=== PATIENT | female | born 1945 | race Caucasian/White ===

== ENCOUNTER 2019-01-31 14:55 | Outpatient (CLI) | payer MEDICARE, MEDICAID ==
[~2019-01-31] VITALS: Ht 160 cm; Wt 59.0 kg
[2019-01-31 15:16] LABS: TOTAL HEMOGLOBIN 16.4 G/dl (12.0-16.0)
[2019-01-31] MEDS ORDERED: albuterol 2.5 MG/3 ML nebule NEB PRN (15:30)
== END 2019-01-31 23:59 | disposition home or self-care (01) ==
LOC: RT 14:55
PROVIDERS: ATTEND Internal Medicine Pulmonary Disease
DX: J44.9 Chronic obstructive pulmonary disease, unspecified (principal); R06.09 Other forms of dyspnea; F17.210 Nicotine dependence, cigarettes, uncomplicated; Z79.899 Other long term (current) drug therapy
CPT/HCPCS: 85018; 94060; 94727; 94729; 94760

== ENCOUNTER 2019-08-30 23:51 | Inpatient (IN) | payer MEDICARE, MEDICAID ==
[~2019-08-30] VITALS: Ht 162.6 cm; Wt 58.3 kg
[2019-08-31] VITALS (17 sets, daily range): BP systolic 91–128; BP diastolic 42–68
--- NOTE | 2019-08-31 00:35 | NUR ---
marie black [phone] pt daughter emergency contact ok to give information per daughter
[2019-08-31 00:41] LABS: BASOPHILS % (AUTO) 0.3 % (0-1); EOSINOPHILS % (AUTO) 0 % (0-6); HEMATOCRIT 39.1 % (35.0-45.0); LYMPHOCYTES # (AUTO) 1.8 X10'3 (1.1-4.8); LYMPHOCYTES % (AUTO) 11.1 % (21-51); MEAN CORPUSCULAR HEMOGLOBIN 31.2 PG (27.0-31.0); MEAN CORPUSCULAR HGB CONC 33.3 g/dL (33.0-36.5); MEAN CORPUSCULAR VOLUME 93.6 FL (78-98); MONOCYTES # (AUTO) 1.1 X10'3 (0-0.9); MONOCYTES % (AUTO) 6.6 % (2-12); NEUTROPHILS # (AUTO) 13.1 X10'3 (1.8-7.7); PLATELET COUNT 209 X10'3 (140-440); RED BLOOD COUNT 4.18 X10'6 (4.20-5.60); RED CELL DISTRIBUTION WIDTH 15.5 % (11.5-14.5)
[2019-08-31 00:50] LABS: ALANINE AMINOTRANSFERASE 130 U/L (12-78); ALBUMIN 3.1 G/DL (3.4-5.0); ALKALINE PHOSPHATASE 127 IU/L (46-116); ANION GAP 13 (8-16); ASPARTATE AMINO TRANSFERASE 133 U/L (10-37); BILIRUBIN,TOTAL 0.4 MG/DL (0.1-1.0); BLOOD UREA NITROGEN 27 MG/DL (7-18); BUN/CREATININE RATIO 11.1 (6.6-38.0); CALCIUM 9.2 MG/DL (8.5-10.1); CHLORIDE 108 MMOL/L (99-107); CREATININE 2.44 MG/DL (0.40-0.90); GLUCOSE 95 MG/DL (70-104); POTASSIUM 5.3 MMOL/L (3.5-5.1); SODIUM 141 MMOL/L (135-145); TOTAL CARBON DIOXIDE 19.9 MMOL/L (24-32); TOTAL PROTEIN 6.1 G/DL (6.4-8.2); eGFR 19 ML/MIN
[2019-08-31 00:56] LABS: MAGNESIUM 2.3 MG/DL (1.5-2.4)
[2019-08-31] MEDS ORDERED: normal saline 1000ML IV soln IVB ONE ×2 (01:00)
[2019-08-31] MEDS: tirofiban 5mg in NS 100mL 100 ML IV SCH ×2 (02:00→08:28)
[2019-08-31 02:11] LABS: CLARITY,URINE SLIGHTLY CLOUDY (Clear); COLOR,URINE YELLOW (Yellow); GLUCOSE, URINE NEGATIVE (Neg); KETONES,URINE NEGATIVE (Neg); LEUKOCYTE ESTERASE ,URINE TRACE (Neg); NITRITES, URINE NEGATIVE (Neg); OCCULT BLOOD,URINE NEGATIVE (Neg); PH,URINE 5.5 (4.8-8.0); PROTEIN,URINE 30 mg/dl (Neg)
[2019-08-31 02:12] LABS: UA COLLECTION TYPE STRAIGHT CATH
[2019-08-31 02:18] LABS: SQUAMOUS EPITHELIAL CELL,UR FEW /LPF (FEW)
[2019-08-31 02:20] LABS: BACTERIA,URINE FEW /HPF (Neg); RBC,URINE 0-2 /HPF (0-2); WBC,URINE 0-4 /HPF (0-4)
[2019-08-31] MEDS ORDERED: OMEP20CA11 PO (02:48)
[2019-08-31] MEDS ORDERED: BUPR1TAB36 SL (02:48)
[2019-08-31] MEDS ORDERED: GABA-532 PO (02:49)
[2019-08-31] MEDS ORDERED: FLUT1AER IH (02:49)
[2019-08-31] MEDS ORDERED: GABA-530 PO (02:49)
[2019-08-31] MEDS ORDERED: ATOR10TA70 PO (02:49)
[2019-08-31 03:03] LABS: TROPONIN I 6.04 NG/ML (0.0-0.05)
[2019-08-31] MEDS ORDERED: AMIT-189 PO (03:03)
[2019-08-31] MEDS ORDERED: dexamethasone sod phosphate 10mg/ml inj IV STA (03:11)
[2019-08-31] MEDS ORDERED: CefTRIAXone 2gm/D5W 50ml 50 ML IV ONE (03:15)
[2019-08-31] MEDS: normal saline 1000ml 1,000 ML IV SCH (03:32)
[2019-08-31] MEDS ORDERED: heparin 25,000 UNIT/250ml bag 250 ML IV SCH ×3 (03:34→04:34)
[2019-08-31] MEDS ORDERED: morphine 4 MG/ML inj SYRINge IV PRN (03:35)
[2019-08-31] MEDS ORDERED: morphine 2 MG/ML inj. syringe IV PRN (03:35)
[2019-08-31] MEDS ORDERED: magnesium 4gm in 100ml NS 100 ML IV PRN (03:35)
[2019-08-31] MEDS ORDERED: magnesium Cl slow-release 64mg tablet PO PRN (03:35)
[2019-08-31] MEDS ORDERED: potassium CL 10mEq/100ml bag 100 ML IV PRN ×2 (03:35)
[2019-08-31] MEDS ORDERED: magnesium 2GM in 50ml NS 50 ML IV PRN (03:35)
[2019-08-31] MEDS ORDERED: ondansetron/PF 4mg/2ml inj IV PRN (03:35)
[2019-08-31] MEDS: K, MAG and/or Phos replacement - Verify level? MC SCH ×2 (03:35→08:00)
[2019-08-31] MEDS ORDERED: acetaminophen 325mg tablet PO PRN ×2 (03:35)
[2019-08-31] MEDS ORDERED: potassium Cl 20 mEq SR tablet PO PRN (03:35)
[2019-08-31] MEDS: heparin 25,000 UNIT/250ml bag 250 ML IV SCH (04:52)
--- NOTE | 2019-08-31 05:33 | NUR ---
PT STARTING TO WAKE UP BECOEM MORE ALERT . INFORMED PT THAT SHE WILL NEED A TEMP LEMUS FOR HER ADMISSSION. PT STATED " I CAN GET UP TO GO TO THE BATHROOM " WHEN ASKED , ARE YOU STEADY ON YOUR FEET? SHE REPLYS " USUALLY LAURA , WE WILL FIND OUT WHEN I GET UP " THEN DOSED BACK TO SLEEP . NOTIFIED DR RICHARD
--- NOTE | 2019-08-31 06:04 | NUR ---
CALLED LAB AND ASKED THEM TO RUN SPARE BLOOD SENT TO LAB AT 0455 FOR THE BMP AND TROP
[2019-08-31 06:20] LABS: ALBUMIN 2.9 G/DL (3.4-5.0); ANION GAP 10 (8-16); BLOOD UREA NITROGEN 28 MG/DL (7-18); BUN/CREATININE RATIO 12.9 (6.6-38.0); CALCIUM 8.5 MG/DL (8.5-10.1); CHLORIDE 110 MMOL/L (99-107); CREATININE 2.17 MG/DL (0.40-0.90); GLUCOSE 109 MG/DL (70-104); POTASSIUM 5.3 MMOL/L (3.5-5.1); SODIUM 140 MMOL/L (135-145); TOTAL CARBON DIOXIDE 19.6 MMOL/L (24-32); eGFR 22 ML/MIN
[2019-08-31 06:39] LABS: TROPONIN I 5.42 NG/ML (0.0-0.05)
--- NOTE | 2019-08-31 06:45 | NUR ---
ATTEMPTED TO NOTIFY DORIE VALDEZ OF THE 6 HR TROPONIN THAT IS 5.42. WILL REPORT THE VALUE TO THE RECEIVING RN IN ICU.
--- NOTE | 2019-08-31 07:30 | NUR ---
Report called to receiving nurse. Transferred via [] Belongings []. Special Issues communicated to receiving nurse. Addendum: 08/31/19 at 0755 by Diana Lazo RN pt report received; all questions answered. pt arrived to the floor via gurney and transferred to bed. VSS, pt oriented to room and call light.
[2019-08-31] MEDS: pantoprazole 40 MG vial IV SCH (08:28)
[2019-08-31] MEDS ORDERED: TIOT4MIS5 IH (10:38)
[2019-08-31] MEDS ORDERED: albuterol 2.5 MG/3 ML nebule NEB PRN (11:45)
--- NOTE | 2019-08-31 18:28 | NUR ---
Problems reprioritized. Patient report given, questions answered & plan of care reviewed with Arleen RIOJAS.
--- NOTE | 2019-08-31 18:42 | NUR ---
184..Patient in room ICU 2045. I have received report from Jimenez RIOJAS and had the opportunity to ask questions and assume patient care.
[2019-08-31] MEDS ORDERED: non-formulary drug (Omeprazole 1 CAP) PO SCH (20:00)
[2019-08-31] MEDS: budesonide 0.5mg/2ml UD nebule IH SCH (20:22)
[2019-08-31] MEDS: amitriptyline 50mg tablet PO SCH (21:35)
[2019-08-31] MEDS: buprenorphine/naloxone 8mg/2mg SL tablet SL SCH (21:35)
--- NOTE | 2019-08-31 23:56 | NUR ---
2000..Assessment as noted, pt oriented x3, but seems slightly confused/disoriented.
[2019-09-01] VITALS (18 sets, daily range): BP systolic 80–106; BP diastolic 40–69
[2019-09-01] MEDS: normal saline 1000ml 1,000 ML IV SCH ×2 (00:36→19:32)
[2019-09-01] MEDS: tirofiban 5mg in NS 100mL 100 ML IV SCH ×2 (00:36→17:37)
--- NOTE | 2019-09-01 00:40 | NUR ---
0000..resting quietly,eyes closed,resp easy and unlabored, no other changes noted.
--- NOTE | 2019-09-01 04:34 | NUR ---
0400..No changes noted.
--- NOTE | 2019-09-01 06:21 | NUR ---
0620..Problems reprioritized. Patient report given, questions answered & plan of care reviewed with Romeo RIOJAS.
[2019-09-01 06:24] LABS: BASOPHILS % (AUTO) 0.3 % (0-1); EOSINOPHILS # (AUTO) 0.1 X10'3 (0-0.9); EOSINOPHILS % (AUTO) 1.1 % (0-6); HEMOGLOBIN 12.4 g/dl (12.0-16.0); LYMPHOCYTES % (AUTO) 9.2 % (21-51); MEAN CORPUSCULAR HEMOGLOBIN 30.9 PG (27.0-31.0); MEAN CORPUSCULAR HGB CONC 32.8 g/dL (33.0-36.5); MEAN CORPUSCULAR VOLUME 94.4 FL (78-98); MEAN PLATELET VOLUME 8.3 FL (7.4-10.4); MONOCYTES # (AUTO) 0.8 X10'3 (0-0.9); MONOCYTES % (AUTO) 6.9 % (2-12); NEUTROPHILS # (AUTO) 9.3 X10'3 (1.8-7.7); NEUTROPHILS % (AUTO) 82.5 % (42-75); PLATELET COUNT 164 X10'3 (140-440); RED BLOOD COUNT 4.02 X10'6 (4.20-5.60); RED CELL DISTRIBUTION WIDTH 15.5 % (11.5-14.5); WHITE BLOOD COUNT 11.3 X10'3 (4.5-11.0)
--- NOTE | 2019-09-01 06:25 | NUR ---
Patient in room ICU 2045. I have received report from SHINE Richardson and had the opportunity to ask questions and assume patient care.
[2019-09-01 06:35] LABS: ALANINE AMINOTRANSFERASE 117 U/L (12-78); ALBUMIN 2.7 G/DL (3.4-5.0); ALBUMIN/GLOBULIN RATIO 0.9 (1.1-1.5); ALKALINE PHOSPHATASE 111 IU/L (46-116); ANION GAP 9 (8-16); ASPARTATE AMINO TRANSFERASE 65 U/L (10-37); BILIRUBIN,TOTAL 0.4 MG/DL (0.1-1.0); BLOOD UREA NITROGEN 29 MG/DL (7-18); BUN/CREATININE RATIO 20.1 (6.6-38.0); CHLORIDE 109 MMOL/L (99-107); CREATININE 1.44 MG/DL (0.40-0.90); GLUCOSE 95 MG/DL (70-104); MAGNESIUM 2.2 MG/DL (1.5-2.4); PHOSPHORUS 2.8 MG/DL (2.3-4.5); POTASSIUM 4.4 MMOL/L (3.5-5.1); SODIUM 141 MMOL/L (135-145); TOTAL CARBON DIOXIDE 22.9 MMOL/L (24-32); TOTAL PROTEIN 5.6 G/DL (6.4-8.2); eGFR 35 ML/MIN
--- NOTE | 2019-09-01 06:45 | NUR ---
pt woke up and was attempting to get oob alone. She was responding to need to void. Assisted her to bedside commode, transferred with min assist. Mentation was slow and exhibited word searching, but was able to answer question with appropriate single word and nod. She was assisted back to bed and fell right back to sleep. She is resting comfortably.
[2019-09-01] MEDS ORDERED: non-formulary drug (Fluticasone/Vilanterol (Breo Ellipta 100-25 Mcg INH) 1 PUFF) IH SCH (08:00)
[2019-09-01] MEDS: K, MAG and/or Phos replacement - Verify level? MC SCH (08:00)
[2019-09-01] MEDS: budesonide 0.5mg/2ml UD nebule IH SCH ×2 (08:03→21:24)
[2019-09-01] MEDS: albuterol 2.5 MG/3 ML nebule NEB SCH ×4 (08:05→21:24)
--- NOTE | 2019-09-01 08:20 | NUR ---
Dr Carcamo in to see pt. She was arousable, but not communicative.
[2019-09-01] MEDS: pantoprazole 40 MG vial IV SCH (08:27)
[2019-09-01] MEDS: buprenorphine/naloxone 8mg/2mg SL tablet SL SCH (08:27)
[2019-09-01] MEDS: atorvastatin 10mg tablet PO SCH (08:27)
[2019-09-01] MEDS ORDERED: acetylcysteine 200 MG/ml 4ml vial INH PRN (11:10)
--- NOTE | 2019-09-01 16:01 | NUR ---
Spoke wit Cuca Silveira on phone @ 1500 regarding pt was hard to arouse after taking her Saboxone she stated she would come up to see pt before transfer to Tele floor. . Spoke with daughter Irene about the medication Saboxone, she states that it "snows" her every time she takes it, and thinks it should be discontinued. Advised Cuca Silveira and she agreed to d/c Saboxone. Pt is more alert at this point and will transfer to tele floor.
--- NOTE | 2019-09-01 16:06 | NUR ---
Micro phoned to report that pt has positive for Gram Positive Cocci in clusters from L hand blood culture.
--- NOTE | 2019-09-01 16:27 | NUR ---
Eleni Silveira notified of gram positive cocci in blood culture.
--- NOTE | 2019-09-01 16:47 | NUR ---
Phoned report to SHINE Rodriguez pt ready to transport to telemetry
[2019-09-01] MEDS: heparin 25,000 UNIT/250ml bag 250 ML IV SCH ×2 (17:41→17:54)
[2019-09-01] MEDS: heparin 10,000 units/1 ML INJ IV PRN (17:53)
--- NOTE | 2019-09-01 18:18 | NUR ---
Problems reprioritized. Patient report given, questions answered & plan of care reviewed with Ashok RN.
--- NOTE | 2019-09-01 18:39 | NUR ---
Patient in room PCU 3023. I have received report from Michael RIOJAS and had the opportunity to ask questions and assume patient care.
[2019-09-01] MEDS: amitriptyline 50mg tablet PO SCH (21:46)
[2019-09-02 01:04] LABS: BASOPHILS % (AUTO) 0.5 % (0-1); EOSINOPHILS # (AUTO) 0.1 X10'3 (0-0.9); EOSINOPHILS % (AUTO) 1.3 % (0-6); HEMATOCRIT 32.9 % (35.0-45.0); HEMOGLOBIN 11.3 g/dl (12.0-16.0); LYMPHOCYTES # (AUTO) 0.7 X10'3 (1.1-4.8); LYMPHOCYTES % (AUTO) 7.3 % (21-51); MEAN CORPUSCULAR HGB CONC 34.2 g/dL (33.0-36.5); MEAN CORPUSCULAR VOLUME 93.6 FL (78-98); MEAN PLATELET VOLUME 7.9 FL (7.4-10.4); MONOCYTES # (AUTO) 0.7 X10'3 (0-0.9); MONOCYTES % (AUTO) 7.6 % (2-12); NEUTROPHILS # (AUTO) 7.9 X10'3 (1.8-7.7); NEUTROPHILS % (AUTO) 83.3 % (42-75); PLATELET COUNT 145 X10'3 (140-440); RED BLOOD COUNT 3.52 X10'6 (4.20-5.60); RED CELL DISTRIBUTION WIDTH 15.3 % (11.5-14.5); WHITE BLOOD COUNT 9.4 X10'3 (4.5-11.0)
[2019-09-02 01:15] LABS: ALANINE AMINOTRANSFERASE 100 U/L (12-78); ALBUMIN 2.5 G/DL (3.4-5.0); ALBUMIN/GLOBULIN RATIO 0.9 (1.1-1.5); ALKALINE PHOSPHATASE 102 IU/L (46-116); ANION GAP 7 (8-16); ASPARTATE AMINO TRANSFERASE 35 U/L (10-37); BILIRUBIN,TOTAL 0.3 MG/DL (0.1-1.0); BLOOD UREA NITROGEN 22 MG/DL (7-18); BUN/CREATININE RATIO 16.5 (6.6-38.0); CALCIUM 8.5 MG/DL (8.5-10.1); CHLORIDE 109 MMOL/L (99-107); CREATININE 1.33 MG/DL (0.40-0.90); GLUCOSE 116 MG/DL (70-104); PHOSPHORUS 2.2 MG/DL (2.3-4.5); POTASSIUM 4.2 MMOL/L (3.5-5.1); SODIUM 139 MMOL/L (135-145); TOTAL CARBON DIOXIDE 22.9 MMOL/L (24-32); TOTAL PROTEIN 5.3 G/DL (6.4-8.2); eGFR 39 ML/MIN
[2019-09-02 03:00] VITALS: BP 101/48
--- NOTE | 2019-09-02 06:21 | NUR ---
Problems reprioritized. Patient report given, questions answered & plan of care reviewed with Audra RIOJAS.
--- NOTE | 2019-09-02 06:30 | NUR ---
Patient in room PCU 3025. I have received report from Ashok RN and had the opportunity to ask questions and assume patient care. Patient asleep in bed. All immediate needs met at this time.
[2019-09-02 07:00] VITALS: BP 89/48
[2019-09-02] MEDS: tirofiban 5mg in NS 100mL 100 ML IV SCH ×2 (07:47→21:53)
[2019-09-02] MEDS: budesonide 0.5mg/2ml UD nebule IH SCH ×2 (07:55→20:05)
[2019-09-02] MEDS: albuterol 2.5 MG/3 ML nebule NEB SCH ×4 (07:55→20:05)
[2019-09-02] MEDS: pantoprazole 40 MG vial IV SCH (07:57)
[2019-09-02] MEDS: atorvastatin 10mg tablet PO SCH (07:57)
[2019-09-02] MEDS: heparin 10,000 units/1 ML INJ IV PRN (07:59)
[2019-09-02] MEDS: K, MAG and/or Phos replacement - Verify level? MC SCH (08:00)
[2019-09-02] MEDS: heparin 25,000 UNIT/250ml bag 250 ML IV SCH (08:02)
[2019-09-02] MEDS: normal saline 1000ml 1,000 ML IV SCH ×3 (08:03→23:11)
--- NOTE | 2019-09-02 09:52 | NUR ---
New order from Dr. Carcamo. 0.2 mg IV narcan once.
[2019-09-02] MEDS ORDERED: naloxone 0.4 mg/ml inj IV ONE ×2 (09:55→12:05)
[2019-09-02 11:00] VITALS: BP 100/42
[2019-09-02 13:11] LABS: ABG BASE EXCESS -3.3 mmol/L (-2.0-3.0); ABG HCO3 21.2 mmol/L (22.0-26.0); ABG OXYGEN SATURATION 89.6 % (95-98); ABG PH (T) 7.387 (7.350-7.450); FCOHb 1.6 % (0.5-1.5); FLOW 6 L/min; FMetHb 0.3 % (0.3-1.12); FO2Hb 87.9 % (94-100); TOTAL HEMOGLOBIN 12.1 G/dl (12.0-16.0)
[2019-09-02] MEDS ORDERED: proMETHazine 25mg tablet PO PRN (14:30)
[2019-09-02] MEDS ORDERED: azithromycin 250mg tablet PO ONE (14:30)
[2019-09-02 15:00] VITALS: BP 118/66
[2019-09-02] MEDS: CefTRIAXone 2gm/D5W 50ml 50 ML IV SCH (16:01)
[2019-09-02 18:00] VITALS: BP 116/58
--- NOTE | 2019-09-02 18:30 | NUR ---
Problems reprioritized. Patient report given, questions answered & plan of care reviewed with SHINE German. Patient stable at transfer of care.
[2019-09-02] MEDS: amitriptyline 50mg tablet PO SCH (21:53)
[2019-09-02 23:00] VITALS: BP 125/54
--- NOTE | 2019-09-03 00:30 | NUR ---
Nurse was reported by 4th aspect that patient oxygen saturation had dropped down to 84%. Both assigned nurse, resource nurse, and present sitter went to patient's bedside to assess oxygen saturation. It was then that patient found to be unresponsive with only minimal response to painful stimuli. Rapid response was called and respiratory therapy, lab, and ICU charge responded. High flow nasal cannula was immediately increased from 6.0 to 12.0 as well as a nursing bolus of 500 mL was given. Blood sugar also was taken and resulted at 93. MANAGER WASTEWATER Chiquis also ordered labs and stat ABGs. Patient responsiveness increased, with given interventions, and pt was more responsive to painful stimuli and was able to open eyes for a few seconds. Once ABGs resulted it was concluded by MANAGER WASTEWATER that unresponsiveness may have been related to given ordered Amitriptyline and decreased oxygen perfusion. Close monitoring will be followed up frequently by nurse and aide sitting for neighboring bed will also present in the room at all times.
[2019-09-03 00:40] LABS: ABG BASE EXCESS -5.1 mmol/L (-2.0-3.0); ABG HCO3 19.6 mmol/L (22.0-26.0); ABG OXYGEN SATURATION 88.4 % (95-98); ABG PCO2 (T) 35.1 mmHg (35.0-45.0); ABG PH (T) 7.365 (7.350-7.450); ABG PO2 (T) 53.3 mmHg (83-108); ALLEN'S TEST Positive; FCOHb 1.4 % (0.5-1.5); FLOW 6 L/min; FMetHb 0.3 % (0.3-1.12); FO2Hb 86.9 % (94-100); RESPIRATORY RATE (OBSERVED) 22 b/min; TOTAL HEMOGLOBIN 11.7 G/dl (12.0-16.0)
--- NOTE | 2019-09-03 00:45 | NUR ---
COURTNEY Sim stated that MD rounding for patient during the day shift should assess patient's ability to tolerate ordered Amitriptyline. This information will be passed on to oncoming day shift RN.
[2019-09-03 01:19] LABS: BASOPHILS % (AUTO) 0.1 % (0-1); EOSINOPHILS # (AUTO) 0.2 X10'3 (0-0.9); EOSINOPHILS % (AUTO) 1.9 % (0-6); HEMATOCRIT 34.2 % (35.0-45.0); HEMOGLOBIN 11.4 g/dl (12.0-16.0); LYMPHOCYTES # (AUTO) 0.7 X10'3 (1.1-4.8); LYMPHOCYTES % (AUTO) 7.9 % (21-51); MEAN CORPUSCULAR HEMOGLOBIN 31.5 PG (27.0-31.0); MEAN CORPUSCULAR HGB CONC 33.3 g/dL (33.0-36.5); MEAN CORPUSCULAR VOLUME 94.4 FL (78-98); MEAN PLATELET VOLUME 8.1 FL (7.4-10.4); MONOCYTES # (AUTO) 0.9 X10'3 (0-0.9); MONOCYTES % (AUTO) 10.5 % (2-12); NEUTROPHILS # (AUTO) 7.2 X10'3 (1.8-7.7); NEUTROPHILS % (AUTO) 79.6 % (42-75); PLATELET COUNT 132 X10'3 (140-440); RED BLOOD COUNT 3.62 X10'6 (4.20-5.60); RED CELL DISTRIBUTION WIDTH 15.4 % (11.5-14.5)
[2019-09-03 01:26] LABS: ALBUMIN 2.3 G/DL (3.4-5.0); ANION GAP 8 (8-16); BLOOD UREA NITROGEN 15 MG/DL (7-18); BUN/CREATININE RATIO 14.7 (6.6-38.0); CALCIUM 8.4 MG/DL (8.5-10.1); CHLORIDE 110 MMOL/L (99-107); CREATININE 1.02 MG/DL (0.40-0.90); GLUCOSE 97 MG/DL (70-104); POTASSIUM 3.8 MMOL/L (3.5-5.1); SODIUM 140 MMOL/L (135-145); TOTAL CARBON DIOXIDE 22.5 MMOL/L (24-32); eGFR 53 ML/MIN
[2019-09-03 01:29] LABS: TROPONIN I 1.13 NG/ML (0.0-0.05)
[2019-09-03 03:00] VITALS: BP 94/55
[2019-09-03] MEDS: heparin 25,000 UNIT/250ml bag 250 ML IV SCH ×2 (04:52→09:17)
[2019-09-03] MEDS: normal saline 1000ml 1,000 ML IV SCH (04:54)
--- NOTE | 2019-09-03 06:27 | NUR ---
Patient in room PCU 3025. I have received report from Monserrat and had the opportunity to ask questions and assume patient care.
--- NOTE | 2019-09-03 06:36 | NUR ---
Patient retaining urine and was bladder scanned to appox. be retaining 869 mL. Patient was assisted to commode to urinate and was only able to output 50 mL. COURTNEY Sim has ordered a one time straight cath procedure. Addendum: 09/03/19 at 0659 by Ashley House RN Approx 1000 mL was outputted via straight cath.
[2019-09-03 07:00] VITALS: BP 117/55
[2019-09-03] MEDS: albuterol 2.5 MG/3 ML nebule NEB SCH ×4 (07:17→20:30)
[2019-09-03] MEDS: budesonide 0.5mg/2ml UD nebule IH SCH ×2 (07:23→20:30)
[2019-09-03] MEDS: K, MAG and/or Phos replacement - Verify level? MC SCH (08:00)
[2019-09-03] MEDS ORDERED: azithromycin 250mg tablet PO SCH (08:00)
[2019-09-03] MEDS: pantoprazole 40mg Tablet.DR PO SCH (08:02)
[2019-09-03] MEDS: atorvastatin 10mg tablet PO SCH (08:02)
[2019-09-03] MEDS: CefTRIAXone 2gm/D5W 50ml 50 ML IV SCH (08:02)
[2019-09-03] MEDS: heparin 10,000 units/1 ML INJ IV PRN (09:14)
[2019-09-03] MEDS: tirofiban 5mg in NS 100mL 100 ML IV SCH (10:40)
[2019-09-03 11:00] VITALS: BP 108/48
[2019-09-03] MEDS ORDERED: normal saline 1000ml 1,000 ML IV SCH ×2 (11:10→11:20)
[2019-09-03] MEDS: furosemide 20 MG/2 ML vial IV SCH (11:53)
--- NOTE | 2019-09-03 14:48 | NUR ---
Page sent to Dr. Brennan PAGER ID: [phone] MESSAGE: [phone] Flaquita Mi, Dr. Barnes stated that he signed off care to you on Tuesday and is no longer following. Please call regarding blood cultures. Thank you. Shobha RIOJAS, PCU 2167
[2019-09-03 15:00] VITALS: BP 102/46
--- NOTE | 2019-09-03 15:27 | NUR ---
I SPOKE WITH DR. FUCHS REGARDING WHICH HOSPITALIST WAS PICKING UP THIS PATIENT FROM [facility], HE INFORMED ME THAT DR. PRESCOTT WOULD BE ROUNDING ON THE PATIENT TODAY.
[2019-09-03 18:00] VITALS: BP 120/49
--- NOTE | 2019-09-03 18:34 | NUR ---
Problems reprioritized. Patient report given, questions answered & plan of care reviewed with Lida. Dr. Brennan assuming patient care and reviewing the patients information, reported to Lida to f/u on blood cultures to ensure she is on the appropriate antibiotics for what is growing if Dr. Brennan does not address this, as she is currently making changes to her medications at this time.
[2019-09-03 18:55] LABS: ABG BASE EXCESS -4.3 mmol/L (-2.0-3.0); ABG HCO3 20.5 mmol/L (22.0-26.0); ABG OXYGEN SATURATION 96.4 % (95-98); ABG PCO2 (T) 36.5 mmHg (35.0-45.0); ABG PH (T) 7.365 (7.350-7.450); ABG PO2 (T) 83.7 mmHg (83-108); ALLEN'S TEST Positive; FCOHb 1.3 % (0.5-1.5); FLOW 12 L/min; FMetHb 0.3 % (0.3-1.12); FO2Hb 94.9 % (94-100); PATIENT TEMPERATURE 36.9; RESPIRATORY RATE (OBSERVED) 18 b/min
[2019-09-03] MEDS: lactobacillus rhamnosus 10,000 MMU CELLS/CAPSULE PO SCH (20:15)
[2019-09-03 22:00] VITALS: BP 119/54
[2019-09-04 02:00] VITALS: BP 109/54
--- NOTE | 2019-09-04 03:54 | NUR ---
Patient in room PCU 3025. I have received report from SHINE Yeager and had the opportunity to ask questions and assume patient care.
--- NOTE | 2019-09-04 04:19 | NUR ---
called about a new antibiotic needed to cover the gram positive cocci shown in lab cultures. Pharmacy will dose the vancomycin.
[2019-09-04] MEDS ORDERED: vancomycin/NS 1 GM ADD-VANTAGE 250 ML X 1 DOSE IV ONE (04:30)
[2019-09-04 05:02] LABS: BASOPHILS % (AUTO) 0.2 % (0-1); EOSINOPHILS # (AUTO) 0.2 X10'3 (0-0.9); EOSINOPHILS % (AUTO) 2.9 % (0-6); HEMATOCRIT 34.4 % (35.0-45.0); HEMOGLOBIN 11.5 g/dl (12.0-16.0); LYMPHOCYTES # (AUTO) 0.9 X10'3 (1.1-4.8); LYMPHOCYTES % (AUTO) 10.3 % (21-51); MEAN CORPUSCULAR HEMOGLOBIN 31.3 PG (27.0-31.0); MEAN CORPUSCULAR HGB CONC 33.6 g/dL (33.0-36.5); MEAN CORPUSCULAR VOLUME 93.2 FL (78-98); MEAN PLATELET VOLUME 8.4 FL (7.4-10.4); MONOCYTES # (AUTO) 0.9 X10'3 (0-0.9); MONOCYTES % (AUTO) 10.7 % (2-12); NEUTROPHILS # (AUTO) 6.4 X10'3 (1.8-7.7); NEUTROPHILS % (AUTO) 75.9 % (42-75); PLATELET COUNT 137 X10'3 (140-440); RED BLOOD COUNT 3.69 X10'6 (4.20-5.60); WHITE BLOOD COUNT 8.4 X10'3 (4.5-11.0)
[2019-09-04 05:24] LABS: ALANINE AMINOTRANSFERASE 50 U/L (12-78); ALBUMIN 2.3 G/DL (3.4-5.0); ALBUMIN/GLOBULIN RATIO 0.7 (1.1-1.5); ALKALINE PHOSPHATASE 95 IU/L (46-116); ANION GAP 9 (8-16); ASPARTATE AMINO TRANSFERASE 13 U/L (10-37); BILIRUBIN,TOTAL 0.5 MG/DL (0.1-1.0); BLOOD UREA NITROGEN 13 MG/DL (7-18); BUN/CREATININE RATIO 11.9 (6.6-38.0); CALCIUM 8.8 MG/DL (8.5-10.1); CHLORIDE 108 MMOL/L (99-107); CREATININE 1.09 MG/DL (0.40-0.90); GLUCOSE 88 MG/DL (70-104); MAGNESIUM 1.8 MG/DL (1.5-2.4); PHOSPHORUS 1.9 MG/DL (2.3-4.5); POTASSIUM 3.4 MMOL/L (3.5-5.1); SODIUM 141 MMOL/L (135-145); TOTAL PROTEIN 5.5 G/DL (6.4-8.2); eGFR 49 ML/MIN
[2019-09-04 06:00] VITALS: BP 100/42
[2019-09-04] MEDS: heparin 25,000 UNIT/250ml bag 250 ML IV SCH (06:36)
--- NOTE | 2019-09-04 06:48 | NUR ---
Patient in room PCU 3025. I have received report from SHINE Hilton and had the opportunity to ask questions and assume patient care.
--- NOTE | 2019-09-04 06:48 | NUR ---
Problems reprioritized. Patient report given, questions answered & plan of care reviewed with SHINE Mancia.
--- NOTE | 2019-09-04 07:51 | NUR ---
PAGER ID: [phone] MESSAGE: [id number]: Flaquita Mi. Pt is pulling at lines and removing O2. Can I please have a sitter order? Thanks Blanche Reed [phone] Addendum: 09/04/19 at 1003 by Blanche Nielsen RN [phone]: New order: Sitter at the bedside per Dr. Carvalho via telephone.
[2019-09-04] MEDS: K, MAG and/or Phos replacement - Verify level? MC SCH (08:00)
[2019-09-04] MEDS: budesonide 0.5mg/2ml UD nebule IH SCH ×2 (08:00→19:24)
[2019-09-04] MEDS: albuterol 2.5 MG/3 ML nebule NEB SCH ×4 (08:12→19:24)
[2019-09-04] MEDS: azithromycin 250mg tablet PO SCH (08:41)
[2019-09-04] MEDS: lactobacillus rhamnosus 10,000 MMU CELLS/CAPSULE PO SCH ×2 (08:41→21:05)
[2019-09-04] MEDS: atorvastatin 10mg tablet PO SCH (08:42)
[2019-09-04] MEDS: furosemide 20 MG/2 ML vial IV SCH ×2 (08:42→14:44)
[2019-09-04] MEDS: CefTRIAXone 2gm/D5W 50ml 50 ML IV SCH (09:08)
[2019-09-04] MEDS: potassium Cl 20 mEq SR tablet PO PRN ×2 (09:48→21:05)
[2019-09-04 11:00] VITALS: BP 116/53
[2019-09-04] MEDS: pantoprazole 40mg Tablet.DR PO SCH (14:43)
[2019-09-04 15:00] VITALS: BP 102/56
--- NOTE | 2019-09-04 15:35 | NUR ---
Paged the PICC nurse regarding starting new IV.
--- NOTE | 2019-09-04 16:57 | NUR ---
Orientee documentation: I have reviewed and agree with all interventions, assessments performed and documented by SHINE Aguirre. Orientee Medication Administration: For this medication-pass time frame, all medication were reviewed, dispensed, administered and documented per hospital policy by SHINE Aguirre.
--- NOTE | 2019-09-04 17:16 | NUR ---
PAGER ID: [phone] MESSAGE: [phone]: Flaquita Mi. Pt takes omeprazole 20mg PO BID. Can she please have an order to resume this medication? Thanks Blanche Reed [phone].
[2019-09-04] MEDS: vancomycin/NS 1 GM ADD-VANTAGE 250 ML IV SCH (17:41)
--- NOTE | 2019-09-04 18:37 | NUR ---
Problems reprioritized. Patient report given, questions answered & plan of care reviewed with Lida RIOJAS.
[2019-09-04 19:00] VITALS: BP 106/68
[2019-09-04] MEDS: amitriptyline 50mg tablet PO SCH (21:00)
[2019-09-04 23:00] VITALS: BP 92/60
[2019-09-05] MEDS: potassium Cl 20 mEq SR tablet PO PRN (02:00)
[2019-09-05] MEDS: heparin 25,000 UNIT/250ml bag 250 ML IV SCH ×2 (02:14→11:37)
[2019-09-05] MEDS: heparin 10,000 units/1 ML INJ IV PRN (02:19)
[2019-09-05 03:00] VITALS: BP 100/50
[2019-09-05] MEDS: vancomycin/NS 1 GM ADD-VANTAGE 250 ML IV SCH ×2 (04:27→17:00)
[2019-09-05 05:57] LABS: BASOPHILS % (AUTO) 0.2 % (0-1); EOSINOPHILS # (AUTO) 0.2 X10'3 (0-0.9); EOSINOPHILS % (AUTO) 3.7 % (0-6); HEMATOCRIT 35.4 % (35.0-45.0); HEMOGLOBIN 11.9 g/dl (12.0-16.0); LYMPHOCYTES # (AUTO) 1.3 X10'3 (1.1-4.8); LYMPHOCYTES % (AUTO) 20.2 % (21-51); MEAN CORPUSCULAR HEMOGLOBIN 31.1 PG (27.0-31.0); MEAN CORPUSCULAR HGB CONC 33.8 g/dL (33.0-36.5); MEAN CORPUSCULAR VOLUME 92.1 FL (78-98); MEAN PLATELET VOLUME 8.7 FL (7.4-10.4); MONOCYTES # (AUTO) 0.7 X10'3 (0-0.9); MONOCYTES % (AUTO) 10.8 % (2-12); NEUTROPHILS # (AUTO) 4.1 X10'3 (1.8-7.7); NEUTROPHILS % (AUTO) 65.1 % (42-75); PLATELET COUNT 143 X10'3 (140-440); RED BLOOD COUNT 3.84 X10'6 (4.20-5.60); WHITE BLOOD COUNT 6.3 X10'3 (4.5-11.0)
[2019-09-05 06:00] VITALS: BP 120/90
[2019-09-05 06:16] LABS: ALANINE AMINOTRANSFERASE 37 U/L (12-78); ALBUMIN 2.3 G/DL (3.4-5.0); ALBUMIN/GLOBULIN RATIO 0.7 (1.1-1.5); ALKALINE PHOSPHATASE 95 IU/L (46-116); ANION GAP 8 (8-16); ASPARTATE AMINO TRANSFERASE 6 U/L (10-37); BILIRUBIN,TOTAL 0.5 MG/DL (0.1-1.0); BLOOD UREA NITROGEN 12 MG/DL (7-18); BUN/CREATININE RATIO 10.7 (6.6-38.0); CALCIUM 9.2 MG/DL (8.5-10.1); CHLORIDE 107 MMOL/L (99-107); CREATININE 1.12 MG/DL (0.40-0.90); GLUCOSE 92 MG/DL (70-104); MAGNESIUM 1.8 MG/DL (1.5-2.4); PHOSPHORUS 1.9 MG/DL (2.3-4.5); SODIUM 141 MMOL/L (135-145); TOTAL CARBON DIOXIDE 26.4 MMOL/L (24-32); TOTAL PROTEIN 5.4 G/DL (6.4-8.2); eGFR 47 ML/MIN
--- NOTE | 2019-09-05 06:35 | NUR ---
Patient in room PCU 3025B. I have received report from Lida RIOJAS and had the opportunity to ask questions and assume patient care. Sitter at bedside with patient.
--- NOTE | 2019-09-05 06:35 | NUR ---
Problems reprioritized. Patient report given, questions answered & plan of care reviewed with SHINE Garcia.
[2019-09-05] MEDS: budesonide 0.5mg/2ml UD nebule IH SCH ×2 (07:15→19:54)
[2019-09-05] MEDS: albuterol 2.5 MG/3 ML nebule NEB SCH ×4 (07:16→19:53)
[2019-09-05] MEDS: furosemide 20 MG/2 ML vial IV SCH ×2 (07:53→12:00)
[2019-09-05] MEDS: lactobacillus rhamnosus 10,000 MMU CELLS/CAPSULE PO SCH ×2 (07:54→20:14)
[2019-09-05] MEDS: atorvastatin 10mg tablet PO SCH (07:54)
[2019-09-05] MEDS: pantoprazole 40mg Tablet.DR PO SCH (07:54)
[2019-09-05] MEDS: CefTRIAXone 2gm/D5W 50ml 50 ML IV SCH (07:54)
[2019-09-05] MEDS: azithromycin 250mg tablet PO SCH (07:54)
[2019-09-05] MEDS: K, MAG and/or Phos replacement - Verify level? MC SCH (08:00)
--- NOTE | 2019-09-05 08:30 | NUR ---
Sitter removed from room, bed alarm on, frequent rounding.
[2019-09-05 11:00] VITALS: BP 92/47
--- NOTE | 2019-09-05 14:20 | NUR ---
Contacted Dr. Carcamo, elderly sitter, office regarding plan of care and possible cath as discussed in consult note. Patient is more awake, alert, and appropriate. Sitter has been discontinued. She is on 4L/min NC and maintaining saturations. Spoke with chairman & chief executive officer and she will relay message to have someone from the office call back. Awaiting return call from Dr. Carcamo.
--- NOTE | 2019-09-05 14:30 | NUR ---
Spoke to Dr. Carvalho via telephone, shared with her the patient's family's concerns that they hadn't seen a doctor in a few days. Dr. Carvalho stated she is busy with a few admits in the ED and would try to come up at 1530.
[2019-09-05 15:00] VITALS: BP 98/53
[2019-09-05] MEDS ORDERED: VANCOMYCIN LEVEL IV ONE (16:30)
--- NOTE | 2019-09-05 16:38 | NUR ---
Initial: Pt admit with NSTEMI, ALOC, and acute on chronic renal failure which is improving per MD notes. Pt confused and A/O x 3 per physical assessment. Pt with active heart healthy diet documented with 0-25% PO intake not meeting nutrient needs however currently being documented as NPO. Pt awaiting cardiac catheterization once she is off high flow oxygen per MD notes. Attempted bedside visit however pt unavailable. LBM 08/31, currently not on any bowel care, d/w RN. Will continue to follow closely. Recommendations: 1) Consider diet liberalization to regular given low PO intake 2) Monitor need for ONS once diet is advanced; encourage PO intake 3) Routine bowel care; no BM in 5 days 4) Wt per rx Addendum: 09/05/19 at [address] Amended: Links added.
--- NOTE | 2019-09-05 17:24 | NUR ---
Sent page to Dr. Carvalho: PAGER ID: [phone] MESSAGE: [phone] Flaquita Mi: Vanco trough is high at 20.2. Stopped vanco. Patient is also requesting a cough suppressant. Thanks, Radha [phone]
--- NOTE | 2019-09-05 17:41 | NUR ---
Plan of care discussed with patient. Questions answered. Patient expressed frustration that "no one seems to know anything that is happening to me". Explained plan of care again with patient and plan for continue monitoring patient. Informed her that I called Dr. Carcamo's office requesting an update for possible cath procedure and had not yet received a response from the office. Patient also wants records released to her primary ethnology professor, Dr. Toño Lopez, office. Patient signed form to release records. Office and med records are closed at this time. Placed form in patient chart for when office is open.
--- NOTE | 2019-09-05 18:00 | NUR ---
Orientee documentation: I have reviewed and agree with all interventions, assessments performed and documented by Christine Wilkins Medication Administration: For this medication-pass time frame, all medication were reviewed, dispensed, administered and documented per hospital policy by Christine RIOJAS
--- NOTE | 2019-09-05 18:11 | NUR ---
Problems reprioritized. Patient report given, questions answered & plan of care reviewed with Germaine RIOJAS. Patient sitting up in bed, PR at 4L/min.
--- NOTE | 2019-09-05 18:20 | NUR ---
Patient in room PCU 3025B. I have received report from SHINE Herron and had the opportunity to ask questions and assume patient care.
[2019-09-05 19:00] VITALS: BP 86/48
--- NOTE | 2019-09-05 20:08 | NUR ---
PAGER ID: [phone] MESSAGE: [phone]. [phone]. SHINE Sanches. Patient in 3025B- admit Dx ALOC/ NSTEMI. Phos 1.9. Would you like replacement orders? Thank You
[2019-09-05] MEDS: amitriptyline 50mg tablet PO SCH (20:14)
[2019-09-05 23:00] VITALS: BP 120/58
--- NOTE | 2019-09-06 01:07 | NUR ---
Spoke with patient family member regarding status of plans for cardiac catheterization. Per nursing notes and MD progress notes, no plans for heart cath tomorrow. Staff, family, and patient awaiting return phone call from Artificial Foliage Arranger, Dr. Carcamo's office. Patient's daughter, Vicky, relayed concern over confusion of NPO/HH diet orders. There are two orders, one submitted under DIETARY for HH and none for NPO. Reassured family member that patient will be receiving meals until orders for NPO have been confirmed. Also spoke with patient's daughter, Vicky, regarding the long drive she has to make to visit her mother from out of the area in [place]. Reached out to admitting to confirm vacancy at [facility] and there are 4-5 rooms available per staff in admitting.
[2019-09-06 03:00] VITALS: BP 100/48
[2019-09-06] MEDS ORDERED: sodium phosphate inj. 30 MMOL in dextrose 5%-water 250 ML IV PRN (05:40)
[2019-09-06] MEDS ORDERED: Neutra Phos packet PO PRN (05:40)
[2019-09-06] MEDS ORDERED: sodium phosphate inj. 15 MMOL in dextrose 5%-water 150 ML IV PRN (05:40)
[2019-09-06] MEDS: VANCOMYCIN 750MG IV in NS 250 ML IV SCH ×2 (05:51→16:45)
[2019-09-06 05:57] LABS: BASOPHILS % (AUTO) 0.3 % (0-1); EOSINOPHILS # (AUTO) 0.3 X10'3 (0-0.9); EOSINOPHILS % (AUTO) 4.3 % (0-6); HEMOGLOBIN 12.2 g/dl (12.0-16.0); LYMPHOCYTES # (AUTO) 1.8 X10'3 (1.1-4.8); LYMPHOCYTES % (AUTO) 26.3 % (21-51); MEAN CORPUSCULAR HEMOGLOBIN 31.1 PG (27.0-31.0); MEAN CORPUSCULAR HGB CONC 33.9 g/dL (33.0-36.5); MEAN CORPUSCULAR VOLUME 91.7 FL (78-98); MEAN PLATELET VOLUME 8.6 FL (7.4-10.4); MONOCYTES # (AUTO) 0.7 X10'3 (0-0.9); MONOCYTES % (AUTO) 10.1 % (2-12); NEUTROPHILS # (AUTO) 4.1 X10'3 (1.8-7.7); PLATELET COUNT 159 X10'3 (140-440); RED BLOOD COUNT 3.93 X10'6 (4.20-5.60); RED CELL DISTRIBUTION WIDTH 14.6 % (11.5-14.5)
--- NOTE | 2019-09-06 06:00 | NUR ---
Patient in room PCU 3025. I have received report from Deanne and had the opportunity to ask questions and assume patient care.
[2019-09-06 06:06] LABS: ALANINE AMINOTRANSFERASE 30 U/L (12-78); ALBUMIN 2.5 G/DL (3.4-5.0); ALBUMIN/GLOBULIN RATIO 0.7 (1.1-1.5); ALKALINE PHOSPHATASE 108 IU/L (46-116); ANION GAP 9 (8-16); ASPARTATE AMINO TRANSFERASE 11 U/L (10-37); BILIRUBIN,TOTAL 0.6 MG/DL (0.1-1.0); BLOOD UREA NITROGEN 10 MG/DL (7-18); BUN/CREATININE RATIO 8.1 (6.6-38.0); CALCIUM 9.6 MG/DL (8.5-10.1); CHLORIDE 105 MMOL/L (99-107); CREATININE 1.23 MG/DL (0.40-0.90); GLUCOSE 109 MG/DL (70-104); MAGNESIUM 1.9 MG/DL (1.5-2.4); PHOSPHORUS 2.8 MG/DL (2.3-4.5); POTASSIUM 3.6 MMOL/L (3.5-5.1); SODIUM 141 MMOL/L (135-145); TOTAL CARBON DIOXIDE 27.5 MMOL/L (24-32); eGFR 43 ML/MIN
--- NOTE | 2019-09-06 06:16 | NUR ---
Problems reprioritized. Patient report given, questions answered & plan of care reviewed with SHINE Yeager. Patient resting comfortably in bed and stable at this time.
[2019-09-06] MEDS: budesonide 0.5mg/2ml UD nebule IH SCH ×2 (06:46→19:57)
[2019-09-06] MEDS: albuterol 2.5 MG/3 ML nebule NEB SCH ×4 (06:46→19:57)
[2019-09-06 07:00] VITALS: BP 93/46
[2019-09-06] MEDS: K, MAG and/or Phos replacement - Verify level? MC SCH (08:00)
[2019-09-06] MEDS: azithromycin 250mg tablet PO SCH (08:39)
[2019-09-06] MEDS: atorvastatin 10mg tablet PO SCH (08:39)
[2019-09-06] MEDS: lactobacillus rhamnosus 10,000 MMU CELLS/CAPSULE PO SCH ×2 (08:39→19:50)
[2019-09-06] MEDS: CefTRIAXone 2gm/D5W 50ml 50 ML IV SCH (08:40)
[2019-09-06] MEDS: furosemide 20 MG/2 ML vial IV SCH (08:40)
[2019-09-06] MEDS: pantoprazole 40mg Tablet.DR PO SCH (08:43)
[2019-09-06 11:00] VITALS: BP 95/41
[2019-09-06] MEDS: heparin 25,000 UNIT/250ml bag 250 ML IV SCH (12:25)
--- NOTE | 2019-09-06 13:01 | NUR ---
Page sent to Dr. Carvalho PAGER ID: [phone] MESSAGE: [phone] Flaquita Mi - Patients family is inquiring about the plan for her, she is on 4L via NC now. Also, patient has not had a BM X 6 days. Can we have orders for milk of magnesia? Shobha RIOJAS, PCU 5183
--- NOTE | 2019-09-06 14:04 | NUR ---
Dr. Carvalho at bedside, discussing POC with patient. Per MD, she is going to contact Dr. Carcamo to discuss POC. MD also okayed order for milk of magnesia, patients appetite has improved and she has yet to have a BM. New orders implemented.
[2019-09-06] MEDS ORDERED: magnesium hydroxide 30ml (MOM) UD suspension PO PRN (14:10)
[2019-09-06 15:00] VITALS: BP 93/62
[2019-09-06] MEDS ORDERED: VANCOMYCIN LEVEL IV ONE (16:30)
--- NOTE | 2019-09-06 18:19 | NUR ---
Patient in room PCU 3025b. I have received report from SHINE Yeager and had the opportunity to ask questions and assume patient care. Patient sitting at bedside with 4 L NC. Heparin gtt infusing at 1000 units/hr per provider order. Stable at this time. Will continue to monitor closely.
--- NOTE | 2019-09-06 18:23 | NUR ---
Problems reprioritized. Patient report given, questions answered & plan of care reviewed with Deanne.
[2019-09-06 19:00] VITALS: BP 95/55
[2019-09-06] MEDS: docusate sod 100mg capsule PO SCH (19:50)
[2019-09-06] MEDS: amitriptyline 50mg tablet PO SCH (20:25)
[2019-09-06] MEDS: heparin 10,000 units/1 ML INJ IV PRN (20:33)
--- NOTE | 2019-09-06 22:23 | NUR ---
1935 Cardiac PTT resulted at 37. Per protocol will administer 2,500 unit bolus Heparin and increase rate from 1000 units/hr to 1200 units/hr. Next cardiac PTT to be drawn at 0235.
[2019-09-06 23:00] VITALS: BP 102/40
[2019-09-07] VITALS (13 sets, daily range): BP systolic 83–118; BP diastolic 42–52
[2019-09-07 02:55] LABS: BASOPHILS % (AUTO) 0.4 % (0-1); EOSINOPHILS # (AUTO) 0.3 X10'3 (0-0.9); EOSINOPHILS % (AUTO) 3.8 % (0-6); HEMATOCRIT 32.9 % (35.0-45.0); HEMOGLOBIN 11.1 g/dl (12.0-16.0); LYMPHOCYTES # (AUTO) 1.7 X10'3 (1.1-4.8); LYMPHOCYTES % (AUTO) 24.5 % (21-51); MEAN CORPUSCULAR HEMOGLOBIN 31.3 PG (27.0-31.0); MEAN CORPUSCULAR HGB CONC 33.8 g/dL (33.0-36.5); MEAN CORPUSCULAR VOLUME 92.4 FL (78-98); MEAN PLATELET VOLUME 8.3 FL (7.4-10.4); MONOCYTES # (AUTO) 0.7 X10'3 (0-0.9); NEUTROPHILS # (AUTO) 4.3 X10'3 (1.8-7.7); NEUTROPHILS % (AUTO) 61.3 % (42-75); PLATELET COUNT 151 X10'3 (140-440); RED BLOOD COUNT 3.56 X10'6 (4.20-5.60); RED CELL DISTRIBUTION WIDTH 14.6 % (11.5-14.5); WHITE BLOOD COUNT 7.1 X10'3 (4.5-11.0)
[2019-09-07 03:04] LABS: ALANINE AMINOTRANSFERASE 27 U/L (12-78); ALBUMIN 2.3 G/DL (3.4-5.0); ALBUMIN/GLOBULIN RATIO 0.8 (1.1-1.5); ALKALINE PHOSPHATASE 96 IU/L (46-116); ANION GAP 4 (8-16); ASPARTATE AMINO TRANSFERASE 12 U/L (10-37); BILIRUBIN,TOTAL 0.4 MG/DL (0.1-1.0); BLOOD UREA NITROGEN 13 MG/DL (7-18); BUN/CREATININE RATIO 11.4 (6.6-38.0); CALCIUM 9.6 MG/DL (8.5-10.1); CHLORIDE 107 MMOL/L (99-107); CREATININE 1.14 MG/DL (0.40-0.90); GLUCOSE 100 MG/DL (70-104); MAGNESIUM 2.1 MG/DL (1.5-2.4); PHOSPHORUS 2.7 MG/DL (2.3-4.5); POTASSIUM 3.6 MMOL/L (3.5-5.1); SODIUM 143 MMOL/L (135-145); TOTAL CARBON DIOXIDE 31.6 MMOL/L (24-32); TOTAL PROTEIN 5.3 G/DL (6.4-8.2); eGFR 46 ML/MIN
--- NOTE | 2019-09-07 04:57 | NUR ---
Cardiac PTT 0235 resulted in false high of 112. Redrew at 0345 and PTT resulted at 64. Per protocol, rate changed from 1200 units/hr to 1100 units/hr. Next PTT to be drawn at 0945.
[2019-09-07] MEDS: VANCOMYCIN 750MG IV in NS 250 ML IV SCH ×2 (05:34→17:00)
--- NOTE | 2019-09-07 05:58 | NUR ---
Problems reprioritized. Patient report given, questions answered & plan of care reviewed with SHINE King.
[2019-09-07] MEDS: normal saline 1000ml 1,000 ML IV SCH ×3 (06:00→16:00)
--- NOTE | 2019-09-07 06:15 | NUR ---
Patient in room PCU 3025. I have received report from SHINE Sanches and had the opportunity to ask questions and assume patient care. Patient is currently sleeping in bed, vancomycin running, heparin running at 1100/hr, NPO for label rewinder. No acute distress, will continue to monitor.
[2019-09-07] MEDS: budesonide 0.5mg/2ml UD nebule IH SCH ×2 (07:06→20:16)
[2019-09-07] MEDS: albuterol 2.5 MG/3 ML nebule NEB SCH ×4 (07:06→20:16)
[2019-09-07] MEDS: azithromycin 250mg tablet PO SCH (07:24)
[2019-09-07] MEDS: docusate sod 100mg capsule PO SCH ×2 (07:24→19:18)
[2019-09-07] MEDS: lactobacillus rhamnosus 10,000 MMU CELLS/CAPSULE PO SCH ×2 (07:24→19:18)
[2019-09-07] MEDS: atorvastatin 10mg tablet PO SCH (07:24)
[2019-09-07] MEDS: pantoprazole 40mg Tablet.DR PO SCH (07:24)
[2019-09-07] MEDS: CefTRIAXone 2gm/D5W 50ml 50 ML IV SCH (07:26)
[2019-09-07] MEDS ORDERED: midazolam 2 mg/2 ml injection ONE (07:37)
[2019-09-07] MEDS ORDERED: iohexol 350 MG/ML 50ML vial IV ONE (07:38)
[2019-09-07] MEDS ORDERED: iohexol 350MG/ML 100ml bottle IV ONE (07:38)
[2019-09-07] MEDS ORDERED: LIDOcaine 1% (10mg/ml)w/preservative injection 20ml MDV ONE (07:38)
[2019-09-07] MEDS ORDERED: fentaNYL/PF 50MCG/1 ML 2ML syringe ONE (07:38)
[2019-09-07] MEDS: K, MAG and/or Phos replacement - Verify level? MC SCH (08:00)
[2019-09-07] MEDS: furosemide 20 MG/2 ML vial IV SCH (08:00)
--- NOTE | 2019-09-07 09:54 | NUR ---
Reassessment: Pt with significant improvement of PO intake up to 75-100% all day yesterday meeting nutrient needs. LBM 08/31. Routine Colace added to med list yesterday and pt received first dose of PRN MoM yesterday. Pt still awaiting cardiac cath placement. Will continue to follow. Recommendations: 1) Consider diet liberalization to regular if low PO intake resumes 2) Monitor need for ONS; encourage PO intake 3) Routine bowel care 4) Wt per rx Addendum: 09/07/19 at [address] Amended: Links added.
--- NOTE | 2019-09-07 14:45 | NUR ---
Problems reprioritized. Patient report given, questions answered & plan of care reviewed with SHINE Arevalo. Patient was transferred to ACCE unit, stable at time of transfer. Femstop/groin site assessed and bruising noted in R groin and pubic area but tissue is soft surrounding groin site.
[2019-09-07] MEDS ORDERED: VANCOMYCIN LEVEL IV ONE (16:30)
--- NOTE | 2019-09-07 17:33 | NUR ---
Lab called with critical lab for Vanco Trough 22.2. Notified Pharmacist who stated to not give 1700 dose, and that he would be adjusting for pt due to this. Page sent to Dr Carvalho reporting lab value and pharmacist adjusting dosing.
[2019-09-08] VITALS (7 sets, daily range): BP systolic 89–105; BP diastolic 41–49
[2019-09-08] MEDS: amitriptyline 50mg tablet PO SCH ×3 (00:49→21:00)
[2019-09-08 05:24] LABS: BASOPHILS % (AUTO) 0.4 % (0-1); EOSINOPHILS # (AUTO) 0.2 X10'3 (0-0.9); EOSINOPHILS % (AUTO) 2.8 % (0-6); HEMATOCRIT 32.4 % (35.0-45.0); HEMOGLOBIN 10.9 g/dl (12.0-16.0); LYMPHOCYTES # (AUTO) 1.3 X10'3 (1.1-4.8); LYMPHOCYTES % (AUTO) 17.3 % (21-51); MEAN CORPUSCULAR HEMOGLOBIN 31.1 PG (27.0-31.0); MEAN CORPUSCULAR HGB CONC 33.5 g/dL (33.0-36.5); MEAN CORPUSCULAR VOLUME 92.9 FL (78-98); MEAN PLATELET VOLUME 8.7 FL (7.4-10.4); MONOCYTES # (AUTO) 0.7 X10'3 (0-0.9); MONOCYTES % (AUTO) 9.3 % (2-12); NEUTROPHILS # (AUTO) 5.2 X10'3 (1.8-7.7); NEUTROPHILS % (AUTO) 70.2 % (42-75); PLATELET COUNT 138 X10'3 (140-440); RED BLOOD COUNT 3.49 X10'6 (4.20-5.60); RED CELL DISTRIBUTION WIDTH 14.6 % (11.5-14.5); WHITE BLOOD COUNT 7.4 X10'3 (4.5-11.0)
[2019-09-08] MEDS: VANCOMYCIN 750MG IV in NS 250 ML IV SCH (05:52)
[2019-09-08 05:56] LABS: ALANINE AMINOTRANSFERASE 21 U/L (12-78); ALBUMIN 2.3 G/DL (3.4-5.0); ALBUMIN/GLOBULIN RATIO 0.7 (1.1-1.5); ALKALINE PHOSPHATASE 99 IU/L (46-116); ANION GAP 6 (8-16); ASPARTATE AMINO TRANSFERASE 14 U/L (10-37); BILIRUBIN,TOTAL 0.4 MG/DL (0.1-1.0); BLOOD UREA NITROGEN 9 MG/DL (7-18); BUN/CREATININE RATIO 8.1 (6.6-38.0); CALCIUM 9.3 MG/DL (8.5-10.1); CHLORIDE 108 MMOL/L (99-107); CREATININE 1.11 MG/DL (0.40-0.90); GLUCOSE 86 MG/DL (70-104); MAGNESIUM 2.1 MG/DL (1.5-2.4); PHOSPHORUS 2.5 MG/DL (2.3-4.5); SODIUM 142 MMOL/L (135-145); TOTAL CARBON DIOXIDE 28.3 MMOL/L (24-32); TOTAL PROTEIN 5.4 G/DL (6.4-8.2); eGFR 48 ML/MIN
--- NOTE | 2019-09-08 06:29 | NUR ---
Problems reprioritized. Patient report given, Ashley RIOJAS questions answered & plan of care reviewed with . bedside report completed. assessed cath site. no bleeding noted.
--- NOTE | 2019-09-08 06:31 | NUR ---
Patient in room MED 310. I have received report from SHINE Parada and had the opportunity to ask questions and assume patient care.
[2019-09-08] MEDS: budesonide 0.5mg/2ml UD nebule IH SCH ×2 (07:17→19:35)
[2019-09-08] MEDS: albuterol 2.5 MG/3 ML nebule NEB SCH ×4 (07:17→19:35)
[2019-09-08] MEDS: K, MAG and/or Phos replacement - Verify level? MC SCH (08:00)
[2019-09-08] MEDS: furosemide 20 MG/2 ML vial IV SCH (08:00)
[2019-09-08] MEDS: azithromycin 250mg tablet PO SCH (08:02)
[2019-09-08] MEDS: lactobacillus rhamnosus 10,000 MMU CELLS/CAPSULE PO SCH ×2 (08:02→20:56)
[2019-09-08] MEDS: CefTRIAXone 2gm/D5W 50ml 50 ML IV SCH (08:02)
[2019-09-08] MEDS: docusate sod 100mg capsule PO SCH ×2 (08:02→20:56)
[2019-09-08] MEDS: atorvastatin 10mg tablet PO SCH (08:02)
[2019-09-08] MEDS: pantoprazole 40mg Tablet.DR PO SCH (08:02)
--- NOTE | 2019-09-08 10:03 | NUR ---
PAGER ID: [phone] MESSAGE: 310. pt. Flaquita Mi. pt. hasn't had bowel movement since 08/31. bowel sounds absent except in LUQ. pt. has no abd. discomfort. can we order a KUB? please advise. SHINE Ramirez [phone]
--- NOTE | 2019-09-08 10:05 | NUR ---
RADIOLOGY PAGED FOR 2 VIEW - PATIENT PLACED IN WHEELCHAIR
--- NOTE | 2019-09-08 10:06 | NUR ---
VASCULAR PAGED FOR CAROTIDS AND VEIN MAPPING
--- NOTE | 2019-09-08 10:20 | NUR ---
VASCULAR CALLED BACK WILL BE IN SHORTLY
--- NOTE | 2019-09-08 10:32 | NUR ---
PAGER ID: [phone] MESSAGE: [phone]: LITTLE - HAS X3 ABX ORDERED. BUT CXR CLEAR, WBC NORMAL, CULTURES NEGATIVE. MAY WE D/C ALL ABX? NURSE HENRIETTA 3302
[2019-09-08 12:31] LABS: ABG BASE EXCESS 0.8 mmol/L (-2.0-3.0); ABG HCO3 24.7 mmol/L (22.0-26.0); ABG OXYGEN SATURATION 91.2 % (95-98); ABG PCO2 (T) 36.8 mmHg (35.0-45.0); ABG PH (T) 7.444 (7.350-7.450); ABG PO2 (T) 57.3 mmHg (83-108); ALLEN'S TEST Positive; FCOHb 1.7 % (0.5-1.5); FLOW 3 L/min; FMetHb 0.3 % (0.3-1.12); FO2Hb 89.4 % (94-100); TOTAL HEMOGLOBIN 11.8 G/dl (12.0-16.0)
--- NOTE | 2019-09-08 16:00 | NUR ---
pt. started becoming more alert and awake around 1130. pt. was able to eat lunch well and has been snacking and getting up and walking with staff.
[2019-09-08] MEDS: vancomycin inj 500 MG in normal saline 100ml IV soln 100 ML IV SCH (17:45)
--- NOTE | 2019-09-08 18:03 | NUR ---
Patient in room MED 310. I have received report from Ashley RIOJAS and had the opportunity to ask questions and assume patient care. bedside report
--- NOTE | 2019-09-08 18:15 | NUR ---
Problems reprioritized. Patient report given, questions answered & plan of care reviewed with SHINE Parada.
--- NOTE | 2019-09-08 21:59 | NUR ---
Dr. Ng notifed. pt fatigue, complaints of "not being able to get fully rested" BP 89/48 HR 94. denies chest pain. new orders 1. discontinue Elavil 2. bolus 500 ml NS
[2019-09-08] MEDS ORDERED: normal saline 500ml IV soln 1,000 ML IV ONE (22:50)
[2019-09-09 02:00] VITALS: BP 96/48
[2019-09-09 04:33] LABS: BASOPHILS # (AUTO) 0.1 X10'3 (0-0.2); BASOPHILS % (AUTO) 0.6 % (0-1); EOSINOPHILS # (AUTO) 0.2 X10'3 (0-0.9); EOSINOPHILS % (AUTO) 1.7 % (0-6); HEMATOCRIT 35.4 % (35.0-45.0); HEMOGLOBIN 11.8 g/dl (12.0-16.0); LYMPHOCYTES # (AUTO) 2.3 X10'3 (1.1-4.8); LYMPHOCYTES % (AUTO) 26.4 % (21-51); MEAN CORPUSCULAR HEMOGLOBIN 30.9 PG (27.0-31.0); MEAN CORPUSCULAR HGB CONC 33.4 g/dL (33.0-36.5); MEAN CORPUSCULAR VOLUME 92.7 FL (78-98); MEAN PLATELET VOLUME 8.7 FL (7.4-10.4); MONOCYTES # (AUTO) 0.8 X10'3 (0-0.9); MONOCYTES % (AUTO) 8.8 % (2-12); NEUTROPHILS # (AUTO) 5.5 X10'3 (1.8-7.7); NEUTROPHILS % (AUTO) 62.5 % (42-75); PLATELET COUNT 149 X10'3 (140-440); RED BLOOD COUNT 3.81 X10'6 (4.20-5.60); RED CELL DISTRIBUTION WIDTH 14.9 % (11.5-14.5); WHITE BLOOD COUNT 8.9 X10'3 (4.5-11.0)
[2019-09-09 04:40] LABS: ALANINE AMINOTRANSFERASE 24 U/L (12-78); ALBUMIN 2.4 G/DL (3.4-5.0); ALBUMIN/GLOBULIN RATIO 0.7 (1.1-1.5); ALKALINE PHOSPHATASE 108 IU/L (46-116); ANION GAP 8 (8-16); ASPARTATE AMINO TRANSFERASE 17 U/L (10-37); BILIRUBIN,TOTAL 0.4 MG/DL (0.1-1.0); BLOOD UREA NITROGEN 8 MG/DL (7-18); BUN/CREATININE RATIO 7.1 (6.6-38.0); CALCIUM 9.6 MG/DL (8.5-10.1); CHLORIDE 107 MMOL/L (99-107); CREATININE 1.12 MG/DL (0.40-0.90); GLUCOSE 102 MG/DL (70-104); MAGNESIUM 2.2 MG/DL (1.5-2.4); PHOSPHORUS 2.6 MG/DL (2.3-4.5); SODIUM 141 MMOL/L (135-145); TOTAL CARBON DIOXIDE 26.3 MMOL/L (24-32); TOTAL PROTEIN 5.7 G/DL (6.4-8.2); eGFR 47 ML/MIN
[2019-09-09] MEDS: vancomycin inj 500 MG in normal saline 100ml IV soln 100 ML IV SCH ×2 (05:42→17:00)
[2019-09-09 06:00] VITALS: BP 93/49
--- NOTE | 2019-09-09 06:15 | NUR ---
Patient in room MED 310. I have received report from SHINE Tejeda and had the opportunity to ask questions and assume patient care.
--- NOTE | 2019-09-09 06:34 | NUR ---
Problems reprioritized. Patient report given,Divya RIOJAS questions answered & plan of care reviewed with .
[2019-09-09] MEDS: budesonide 0.5mg/2ml UD nebule IH SCH ×2 (07:52→19:34)
[2019-09-09] MEDS: albuterol 2.5 MG/3 ML nebule NEB SCH ×4 (07:52→19:34)
[2019-09-09] MEDS: furosemide 20 MG/2 ML vial IV SCH (08:00)
[2019-09-09] MEDS: pantoprazole 40mg Tablet.DR PO SCH (08:29)
[2019-09-09] MEDS: CefTRIAXone 2gm/D5W 50ml 50 ML IV SCH (08:31)
[2019-09-09] MEDS: lactobacillus rhamnosus 10,000 MMU CELLS/CAPSULE PO SCH ×2 (08:35→21:03)
[2019-09-09] MEDS: docusate sod 100mg capsule PO SCH ×2 (08:35→20:00)
[2019-09-09] MEDS: atorvastatin 10mg tablet PO SCH (08:36)
[2019-09-09] MEDS: azithromycin 250mg tablet PO SCH (08:36)
[2019-09-09] MEDS: K, MAG and/or Phos replacement - Verify level? MC SCH (08:41)
--- NOTE | 2019-09-09 09:30 | NUR ---
PAGER ID: [phone] MESSAGE: Dr. Carvalho, patient Joan Mi. rm 310, ACCE patient has not had a BM in several days. Please advise. Thank you, Tram Stokes RN
--- NOTE | 2019-09-09 09:55 | NUR ---
PAGER ID: [phone] MESSAGE: Dr. Carvalho, pt Horace Mi rm 310, ACCE has questions regarding Elavil that was d/c yesterday. Antibiotic therapy? Still need? Thank you, Tram Stokes RN [id number]
[2019-09-09] MEDS ORDERED: MESSAGE TO NURSING PO ONE ×2 (10:00)
[2019-09-09] MEDS ORDERED: bisacodyl 5mg tablet.DR PO PRN ×2 (10:00→11:50)
[2019-09-09] MEDS ORDERED: dextrose 50%-water 50ml dispensing syringe IV PRN (10:00)
[2019-09-09 10:41] LABS: PARTIAL THROMBOPLASTIN TIME 30 SECONDS (22-32)
[2019-09-09] MEDS ORDERED: ringers solution, lacted 1,000 ML IV ONE (10:48)
[2019-09-09 11:00] VITALS: BP 92/42
--- NOTE | 2019-09-09 11:00 | NUR ---
Vitals taken and patient BP decreasing with a MAP in 50s. Repeated BP and contacted Dr. Carvalho. Patient to start on NS at 50cc/hr after bolus of 250 completed. d/c Zithromax and Rocephin, continueb Vanco per orders and earlier Dr. Carvalho had wanted patient to begin oral Augmentin 500 mg po but stated to wait due to patient's surgery on 09/10/[address] Boateng and allow him to decide which way he will go with antibiotic therapy.
[2019-09-09] MEDS ORDERED: normal saline 1000ml 1,000 ML IV SCH (12:25)
[2019-09-09] MEDS ORDERED: albuterol 2.5 MG/3 ML nebule ONE (13:29)
[2019-09-09] MEDS ORDERED: albuterol 2.5 MG/3 ML nebule NEB ONE (13:35)
[2019-09-09 15:00] VITALS: BP 97/48
[2019-09-09 18:00] VITALS: BP 112/53
--- NOTE | 2019-09-09 18:00 | NUR ---
Patient in room MED 310. I have received report from Divya RIOJAS and had the opportunity to ask questions and assume patient care.
--- NOTE | 2019-09-09 18:15 | NUR ---
Problems reprioritized. Patient report given, questions answered & plan of care reviewed with SHINE Bonilla.
[2019-09-09] MEDS ORDERED: metoprolol tartrate 12.5mg (1/2 tablet) PO SCH (20:00)
[2019-09-09] MEDS: mupirocin 2% nasal ointment 1gm UD NS SCH (23:51)
[2019-09-10] VITALS (18 sets, daily range): BP systolic 92–136; BP diastolic 35–53
[2019-09-10] MEDS ORDERED: MESSAGE TO NURSING PO ONE (01:30)
[2019-09-10 03:29] LABS: CLARITY,URINE CLEAR (Clear); COLOR,URINE YELLOW (Yellow); GLUCOSE, URINE NEGATIVE (Neg); KETONES,URINE NEGATIVE (Neg); LEUKOCYTE ESTERASE ,URINE NEGATIVE (Neg); NITRITES, URINE NEGATIVE (Neg); OCCULT BLOOD,URINE NEGATIVE (Neg); PROTEIN,URINE NEGATIVE (Neg); UROBILINOGEN,URINE 0.2 E.U/dL (0.2-1.0)
[2019-09-10 03:35] LABS: UA COLLECTION TYPE NON-SPECIFIED
[2019-09-10 04:16] LABS: BASOPHILS # (AUTO) 0.1 X10'3 (0-0.2); BASOPHILS % (AUTO) 0.8 % (0-1); EOSINOPHILS # (AUTO) 0.2 X10'3 (0-0.9); EOSINOPHILS % (AUTO) 2.1 % (0-6); HEMATOCRIT 34.4 % (35.0-45.0); HEMOGLOBIN 11.5 g/dl (12.0-16.0); LYMPHOCYTES # (AUTO) 1.3 X10'3 (1.1-4.8); LYMPHOCYTES % (AUTO) 17.4 % (21-51); MEAN CORPUSCULAR HEMOGLOBIN 30.8 PG (27.0-31.0); MEAN CORPUSCULAR HGB CONC 33.3 g/dL (33.0-36.5); MEAN CORPUSCULAR VOLUME 92.6 FL (78-98); MEAN PLATELET VOLUME 8.6 FL (7.4-10.4); MONOCYTES # (AUTO) 0.6 X10'3 (0-0.9); NEUTROPHILS # (AUTO) 5.5 X10'3 (1.8-7.7); NEUTROPHILS % (AUTO) 71.7 % (42-75); PLATELET COUNT 157 X10'3 (140-440); RED BLOOD COUNT 3.71 X10'6 (4.20-5.60); RED CELL DISTRIBUTION WIDTH 14.3 % (11.5-14.5); WHITE BLOOD COUNT 7.7 X10'3 (4.5-11.0)
[2019-09-10 04:24] LABS: ALANINE AMINOTRANSFERASE 23 U/L (12-78); ALBUMIN 2.5 G/DL (3.4-5.0); ALBUMIN/GLOBULIN RATIO 0.8 (1.1-1.5); ALKALINE PHOSPHATASE 110 IU/L (46-116); ANION GAP 10 (8-16); ASPARTATE AMINO TRANSFERASE 17 U/L (10-37); BILIRUBIN,TOTAL 0.4 MG/DL (0.1-1.0); BLOOD UREA NITROGEN 8 MG/DL (7-18); BUN/CREATININE RATIO 7.8 (6.6-38.0); CALCIUM 9.2 MG/DL (8.5-10.1); CHLORIDE 106 MMOL/L (99-107); CREATININE 1.03 MG/DL (0.40-0.90); GLUCOSE 107 MG/DL (70-104); MAGNESIUM 1.9 MG/DL (1.5-2.4); PHOSPHORUS 2.5 MG/DL (2.3-4.5); POTASSIUM 3.6 MMOL/L (3.5-5.1); SODIUM 141 MMOL/L (135-145); TOTAL PROTEIN 5.8 G/DL (6.4-8.2); VANCOMYCIN,TROUGH 12.7 UG/ML (6.0-14.0); eGFR 52 ML/MIN
[2019-09-10] MEDS ORDERED: VANCOMYCIN LEVEL IV ONE (04:30)
[2019-09-10] MEDS ORDERED: ROPIVAcaine 0.5% (5mg/ml) 30ml vial ONE (05:08)
[2019-09-10] MEDS: mupirocin 2% nasal ointment 1gm UD NS SCH ×2 (05:12→20:08)
[2019-09-10] MEDS ORDERED: mupirocin 2% nasal ointment 1gm UD NS SCH ×2 (05:30→22:45)
[2019-09-10] MEDS ORDERED: insulin glargine (Lantus) pen - multi-dose SQ PRN (05:30)
[2019-09-10] MEDS ORDERED: vancomycin/NS 1 GM ADD-VANTAGE 250 ML IV ONE (05:30)
[2019-09-10] MEDS: insulin regular, human 100 UNIT in normal saline 100ml IV soln 100 ML IV SCH ×2 (05:30)
[2019-09-10] MEDS ORDERED: midazolam 2 mg/2 ml injection IV PRN (05:30)
[2019-09-10] MEDS ORDERED: MALTODEXTRIN/FRUCTOSE 0.68 KCAL/ML LIQUID 296ML BOTTLE PO ONE (05:30)
[2019-09-10] MEDS ORDERED: gabapentin 400mg capsule PO ONE (05:30)
[2019-09-10] MEDS ORDERED: cefazolin/dext.iso 2gm/50ml 50 ML IV ONE (05:30)
[2019-09-10] MEDS ORDERED: famotidine 20mg tablet PO ONE (06:00)
--- NOTE | 2019-09-10 06:00 | NUR ---
Problems reprioritized. Patient report given, questions answered & plan of care reviewed with Cristina RIOJAS.
[2019-09-10] MEDS ORDERED: LORazepam 2 mg/ml vial IV ONE (06:10)
--- NOTE | 2019-09-10 06:10 | NUR ---
Patient in room MED 310. I have received report from Irene RIOJAS and had the opportunity to ask questions and assume patient care.
[2019-09-10] MEDS ORDERED: LORazepam 2 mg/ml vial ONE (06:35)
[2019-09-10] MEDS: vancomycin inj 500 MG in normal saline 100ml IV soln 100 ML IV SCH (06:50)
[2019-09-10] MEDS ORDERED: DOPamine/D5W 400mg/250ml bag IV ONE (06:55)
[2019-09-10] MEDS ORDERED: INSULIN R 100 UNIT in NS 100ML (1 UNIT/1 ML) BAG IV ONE (06:55)
[2019-09-10] MEDS ORDERED: NORepinephrine 8 MG in NS 250 ML BAG (32 mcg/ml) IV ONE (06:55)
[2019-09-10] MEDS ORDERED: protamine sulf. 10mg/ml inj. IV ONE (06:55)
[2019-09-10] MEDS ORDERED: calcium chloride 100 MG/1 ML inj IV ONE ×2 (06:55→14:00)
[2019-09-10] MEDS ORDERED: isoflurane 100ml inhalation liquid IH ONE (06:55)
[2019-09-10] MEDS ORDERED: aminocaproic acid 250 MG/1 ML inj. ONE ×2 (06:55→14:00)
--- NOTE | 2019-09-10 06:57 | NUR ---
Patient left unit to CVOR at this time. Addendum: 09/10/19 at 0658 by Cristina Green RN Ativan 1 mg IV was clarified for a give prior to transfer this am.
[2019-09-10] MEDS: albuterol 2.5 MG/3 ML nebule NEB SCH ×2 (07:00→10:54)
[2019-09-10] MEDS ORDERED: SUFENTANIL CITRATE 50 MCG/ML 2ml ampule IV ONE (07:02)
[2019-09-10] MEDS ORDERED: LIDOcaine 2% (20mg/ml) 5ml vial ONE (07:05)
[2019-09-10] MEDS ORDERED: rocuronium 10mg/ml inj IV ONE ×2 (07:05→09:59)
[2019-09-10] MEDS ORDERED: propofol inj 20 ML IV ONE (07:05)
[2019-09-10] MEDS: budesonide 0.5mg/2ml UD nebule IH SCH ×2 (07:30→20:00)
[2019-09-10] MEDS: lactobacillus rhamnosus 10,000 MMU CELLS/CAPSULE PO SCH ×2 (08:00→20:00)
[2019-09-10 08:06] LABS: ABG BASE EXCESS -5.3 mmol/L (-2.0-3.0); ABG HCO3 21.1 mmol/L (22.0-26.0); ABG OXYGEN SATURATION 89.7 % (95-98); ABG PCO2 44.5 mmHg (35.0-45.0); ABG PH 7.293 (7.350-7.450); ABG PO2 64.9 mmHg (60.0-100.0); CL (ABG) 108 mmol/L (99-107); FCOHb 1.5 % (0.5-1.5); FMetHb 0.3 % (0.3-1.12); FO2Hb 88.1 % (94-100); GLUCOSE (ABG) 72 mg/dl (70-104); IONIZED CA (ABG) 1.17 mmol/L (1.03-1.32); K (ABG) 3.9 mmol/L (3.3-5.1); NA (ABG) 140 mmol/L (135-145); TOTAL HEMOGLOBIN 10.4 G/dl (12.0-16.0)
[2019-09-10] MEDS ORDERED: heparin 10,000 units/1 ML INJ IR ONE (08:19)
[2019-09-10] MEDS ORDERED: papaverine 30 mg/ml 2ml inj. IA ONE (08:20)
[2019-09-10 08:56] LABS: ABG BASE EXCESS -3.3 mmol/L (-2.0-3.0); ABG OXYGEN SATURATION 98.8 % (95-98); ABG PCO2 47.1 mmHg (35.0-45.0); ABG PH 7.307 (7.350-7.450); ABG PO2 145.2 mmHg (60.0-100.0); CL (ABG) 107 mmol/L (99-107); FCOHb 1.5 % (0.5-1.5); FMetHb 0.3 % (0.3-1.12); GLUCOSE (ABG) 113 mg/dl (70-104); IONIZED CA (ABG) 1.13 mmol/L (1.03-1.32); NA (ABG) 139 mmol/L (135-145); TOTAL HEMOGLOBIN 9.9 G/dl (12.0-16.0)
[2019-09-10 09:05] LABS: ABG BASE EXCESS VENOUS -0.9 mmol/L; ABG HCO3 VENOUS 24.6 mmol/L; ABG PO2 VENOUS 47.3 mmHg; CL (ABG) 102 mmol/L (99-107); FCOHb VENOUS 2.7 %; FHHb VENOUS 17.7 %; FMetHb VENOUS 0.3 %; FO2Hb VENOUS 79.3 %; GLUCOSE (ABG) 116 mg/dl (70-104); IONIZED CA (ABG) 0.97 mmol/L (1.03-1.32); K (ABG) 3.9 mmol/L (3.3-5.1); NA (ABG) 136 mmol/L (135-145)
[2019-09-10 09:20] LABS: ABG BASE EXCESS -0.3 mmol/L (-2.0-3.0); ABG HCO3 25.2 mmol/L (22.0-26.0); ABG OXYGEN SATURATION 99.9 % (95-98); ABG PCO2 45.2 mmHg (35.0-45.0); ABG PH 7.364 (7.350-7.450); ABG PO2 472.8 mmHg (60.0-100.0); CL (ABG) 106 mmol/L (99-107); FCOHb 1.8 % (0.5-1.5); FMetHb 0.3 % (0.3-1.12); FO2Hb 97.8 % (94-100); GLUCOSE (ABG) 142 mg/dl (70-104); K (ABG) 5.6 mmol/L (3.3-5.1); NA (ABG) 136 mmol/L (135-145)
[2019-09-10 09:50] LABS: ABG HCO3 25.3 mmol/L (22.0-26.0); ABG OXYGEN SATURATION 99.5 % (95-98); ABG PCO2 44.2 mmHg (35.0-45.0); ABG PH 7.375 (7.350-7.450); CL (ABG) 105 mmol/L (99-107); FCOHb 1.5 % (0.5-1.5); FMetHb 0.3 % (0.3-1.12); FO2Hb 97.7 % (94-100); GLUCOSE (ABG) 155 mg/dl (70-104); IONIZED CA (ABG) 0.98 mmol/L (1.03-1.32); K (ABG) 4.6 mmol/L (3.3-5.1); NA (ABG) 134 mmol/L (135-145); TOTAL HEMOGLOBIN 8.5 G/dl (12.0-16.0)
[2019-09-10 10:05] LABS: ACT @ 1.70 U 394 SEC (193-297); ACT @ 2.84 U 501 SEC (260-420); BASELINE ACT 155 SEC (101-148); PATIENT WEIGHT 63.0k KG
[2019-09-10 10:10] LABS: ABG BASE EXCESS 3.4 mmol/L (-2.0-3.0); ABG HCO3 27.4 mmol/L (22.0-26.0); ABG OXYGEN SATURATION 99.5 % (95-98); ABG PCO2 39.3 mmHg (35.0-45.0); ABG PH 7.462 (7.350-7.450); ABG PO2 294.6 mmHg (60.0-100.0); CL (ABG) 107 mmol/L (99-107); FCOHb 1.9 % (0.5-1.5); FMetHb 0.3 % (0.3-1.12); FO2Hb 97.3 % (94-100); GLUCOSE (ABG) 149 mg/dl (70-104); IONIZED CA (ABG) 1.13 mmol/L (1.03-1.32); K (ABG) 4.7 mmol/L (3.3-5.1); NA (ABG) 137 mmol/L (135-145); TOTAL HEMOGLOBIN 7.7 G/dl (12.0-16.0)
[2019-09-10 10:35] LABS: ABG BASE EXCESS 2.9 mmol/L (-2.0-3.0); ABG HCO3 27.3 mmol/L (22.0-26.0); ABG OXYGEN SATURATION 99.2 % (95-98); ABG PCO2 40.8 mmHg (35.0-45.0); ABG PH 7.443 (7.350-7.450); ABG PO2 234.2 mmHg (60.0-100.0); CL (ABG) 108 mmol/L (99-107); FCOHb 1.7 % (0.5-1.5); FMetHb 0.3 % (0.3-1.12); FO2Hb 97.2 % (94-100); GLUCOSE (ABG) 133 mg/dl (70-104); K (ABG) 4.2 mmol/L (3.3-5.1); NA (ABG) 138 mmol/L (135-145); TOTAL HEMOGLOBIN 7.7 G/dl (12.0-16.0)
--- NOTE | 2019-09-10 11:06 | NUR ---
Reassessment: Pt PO fluctuates w/ 50% avg past 3 days. Pt still noted to have no significant BM since admit only smears x3 since 08/31 per EMR. Pt NPO to OR today for CABG; would benefit from promotility and opioid antagonist post-op for GI needs per MD approval. Pt refused colace today receiving routinely prior to OR and dulcolax PRN 09/09. Pt will need CABG ed once stable prior to d/c. Will continue to monitor for healing and bowel care needs post-op. Recommendations: 1) Consider diet liberalization to regular if low PO intake resumes post-op 2) Monitor need for ONS post-op 3) Routine bowel care; consider promotility/opioid antagonist post-op per MD approval 4) CABG ed once stable prior to d/c 5) Wt per rx Addendum: 09/10/19 at [address] Amended: Links added.
[2019-09-10 11:20] LABS: ABG HCO3 22.7 mmol/L (22.0-26.0); ABG OXYGEN SATURATION 99.2 % (95-98); ABG PCO2 43.7 mmHg (35.0-45.0); ABG PH 7.333 (7.350-7.450); ABG PO2 192.5 mmHg (60.0-100.0); CL (ABG) 108 mmol/L (99-107); FCOHb 1.8 % (0.5-1.5); FMetHb 0.3 % (0.3-1.12); FO2Hb 97.1 % (94-100); GLUCOSE (ABG) 125 mg/dl (70-104); K (ABG) 3.7 mmol/L (3.3-5.1); NA (ABG) 140 mmol/L (135-145); TOTAL HEMOGLOBIN 8.1 G/dl (12.0-16.0)
[2019-09-10 11:40] LABS: ABG BASE EXCESS -2.7 mmol/L (-2.0-3.0); ABG HCO3 23.4 mmol/L (22.0-26.0); ABG PCO2 46.3 mmHg (35.0-45.0); ABG PH 7.322 (7.350-7.450); ABG PO2 89.6 mmHg (60.0-100.0); CL (ABG) 111 mmol/L (99-107); FCOHb 1.6 % (0.5-1.5); FMetHb 0.2 % (0.3-1.12); FO2Hb 94.3 % (94-100); GLUCOSE (ABG) 114 mg/dl (70-104); IONIZED CA (ABG) 1.16 mmol/L (1.03-1.32); K (ABG) 3.5 mmol/L (3.3-5.1); NA (ABG) 143 mmol/L (135-145); TOTAL HEMOGLOBIN 11.4 G/dl (12.0-16.0)
[2019-09-10] MEDS ORDERED: epiNEPHrine 0.1mg/ml 10ml syringe ONE (11:45)
[2019-09-10 11:51] LABS: ACTIVATED CLOTTING TIME 130 SEC (101-148)
[2019-09-10] MEDS ORDERED: albumin (Human) 5% 250ml 250 ML IV ONE (11:52)
[2019-09-10] MEDS ORDERED: niCARDipine-NS 40mg/200ml IVPB 200 ML IV PRN (11:53)
[2019-09-10] MEDS: sodium chloride 0.45% 1,000 ML IV SCH (11:53)
[2019-09-10] MEDS ORDERED: milrinone (Primacor) 20mg/D5W 100 ML IV PRN (11:53)
[2019-09-10] MEDS ORDERED: DOPamine 400mg/D5W 250ml 250 ML IV PRN (11:53)
[2019-09-10] MEDS ORDERED: nitroGLYCERIN-Tridil 50MG/D5W 250 ML IV PRN (11:53)
[2019-09-10] MEDS ORDERED: dextrose 50%-water 50ml dispensing syringe IV PRN (11:55)
[2019-09-10] MEDS ORDERED: magnesium 4gm in 100ml NS 100 ML IV PRN (11:55)
[2019-09-10] MEDS ORDERED: normal saline 250ml IV soln 250 ML IV PRN (11:55)
[2019-09-10] MEDS ORDERED: potassium Cl 20 mEq SR tablet PO PRN (11:55)
[2019-09-10] MEDS ORDERED: sodium phosphate inj. 15 MMOL in dextrose 5%-water 150 ML IV PRN (11:55)
[2019-09-10] MEDS ORDERED: magnesium hydroxide 30ml (MOM) UD suspension PO PRN (11:55)
[2019-09-10] MEDS ORDERED: morphine 4 MG/ML inj SYRINge IV PRN ×2 (11:55)
[2019-09-10] MEDS: insulin regular, human inj. 100 UNITS in normal saline 100ml IV soln 100 ML IV SCH ×2 (11:55)
[2019-09-10] MEDS ORDERED: metoclopramide 5 mg/ml inj IV PRN (11:55)
[2019-09-10] MEDS ORDERED: HYDROcodone/acetaminophen 10/325mg tab PO PRN ×2 (11:55)
[2019-09-10] MEDS: epiNEPHrine inj 5 MG, calcium chloride inj. 1,000 MG in normal saline 250ml IV soln 250 ML IV SCH (11:55)
[2019-09-10] MEDS ORDERED: sodium phosphate inj. 30 MMOL in dextrose 5%-water 250 ML IV PRN (11:55)
[2019-09-10] MEDS ORDERED: Neutra Phos packet PO PRN (11:55)
[2019-09-10] MEDS ORDERED: acetaminophen 325mg tablet PO PRN (11:55)
[2019-09-10] MEDS ORDERED: pantoprazole 40 MG vial IV ONE (11:55)
--- NOTE | 2019-09-10 12:00 | NUR ---
Received to room 2013 with preceptor Hermila Montiel RN, accompanied by Trey Felix PA and surgical crew. Placed on ventilator, to spinner cap frame, arterial line and PA line pressure monitored. Chest tubes to suction at 20 cm. Cabrera cath to gravity drainage. Dressings are dry and intact. See assessment record. All vasoactive drugs are infusing via central line.
[2019-09-10 12:20] LABS: ABG BASE EXCESS -3.1 mmol/L (-2.0-3.0); ABG HCO3 23.8 mmol/L (22.0-26.0); ABG OXYGEN SATURATION 97.5 % (95-98); ABG PCO2 (T) 51.3 mmHg (35.0-45.0); ABG PH (T) 7.285 (7.350-7.450); ABG PO2 (T) 106.4 mmHg (83-108); FCOHb 1.2 % (0.5-1.5); FLOW 35 L/min; FMetHb 0.1 % (0.3-1.12); FO2Hb 96.2 % (94-100); MINUTE VOLUME 9 L/min; PEEP 5 cm H2O; RESPIRATORY RATE 14 b/min; RESPIRATORY RATE (OBSERVED) 14 b/min; TIDAL VOLUME 550 mL; TOTAL HEMOGLOBIN 11.6 G/dl (12.0-16.0)
[2019-09-10] MEDS: albumin (Human) 5% 250ml 250 ML IV PRN ×2 (12:24→14:53)
[2019-09-10 12:28] LABS: BASOPHILS % (AUTO) 0.2 % (0-1); EOSINOPHILS % (AUTO) 0.1 % (0-6); HEMATOCRIT 32.5 % (35.0-45.0); HEMOGLOBIN 10.8 g/dl (12.0-16.0); LYMPHOCYTES # (AUTO) 1.3 X10'3 (1.1-4.8); MEAN CORPUSCULAR HEMOGLOBIN 30.6 PG (27.0-31.0); MEAN CORPUSCULAR HGB CONC 33.1 g/dL (33.0-36.5); MEAN CORPUSCULAR VOLUME 92.4 FL (78-98); MEAN PLATELET VOLUME 8.5 FL (7.4-10.4); MONOCYTES # (AUTO) 1.1 X10'3 (0-0.9); MONOCYTES % (AUTO) 4.3 % (2-12); NEUTROPHILS # (AUTO) 22.7 X10'3 (1.8-7.7); NEUTROPHILS % (AUTO) 90.4 % (42-75); PLATELET COUNT 107 X10'3 (140-440); RED BLOOD COUNT 3.52 X10'6 (4.20-5.60); RED CELL DISTRIBUTION WIDTH 14.7 % (11.5-14.5)
[2019-09-10 12:33] LABS: WHITE BLOOD COUNT 25.1 X10'3 (4.5-11.0)
[2019-09-10 12:44] LABS: PARTIAL THROMBOPLASTIN TIME 36 SECONDS (22-32)
[2019-09-10 12:48] LABS: ALBUMIN 2.2 G/DL (3.4-5.0); ANION GAP 9 (8-16); BLOOD UREA NITROGEN 9 MG/DL (7-18); BUN/CREATININE RATIO 8.8 (6.6-38.0); CALCIUM 8.2 MG/DL (8.5-10.1); CHLORIDE 112 MMOL/L (99-107); CREATININE 1.02 MG/DL (0.40-0.90); GLUCOSE 109 MG/DL (70-104); MAGNESIUM 2.2 MG/DL (1.5-2.4); PHOSPHORUS 2.6 MG/DL (2.3-4.5); POTASSIUM 3.6 MMOL/L (3.5-5.1); SODIUM 145 MMOL/L (135-145); eGFR 53 ML/MIN
[2019-09-10] MEDS: insulin Lispro (HumaLOG) vial - multi-dose SQ SCH ×2 (13:00→18:00)
[2019-09-10] MEDS: gabapentin 300mg capsule PO SCH ×2 (13:00→20:16)
[2019-09-10 13:09] LABS: PLATELET ESTIMATE DECREASED; TOTAL CELLS COUNTED 100
[2019-09-10 13:23] LABS: ALANINE AMINOTRANSFERASE 15 U/L (12-78); ALBUMIN/GLOBULIN RATIO 1.2 (1.1-1.5); ALKALINE PHOSPHATASE 77 IU/L (46-116); ASPARTATE AMINO TRANSFERASE 25 U/L (10-37); BILIRUBIN,TOTAL 0.5 MG/DL (0.1-1.0); TOTAL PROTEIN 4.1 G/DL (6.4-8.2)
[2019-09-10] MEDS: magnesium 2GM in 50ml NS 50 ML IV PRN (13:34)
[2019-09-10] MEDS: potassium Cl 20mEq/100mL bag 100 ML IV PRN ×3 (13:48→15:44)
[2019-09-10] MEDS ORDERED: potassium Cl 2 mEq/ml inj IV ONE (14:00)
[2019-09-10] MEDS ORDERED: methylPREDNISolone sod. succ. 500mg inj ONE (14:00)
[2019-09-10] MEDS ORDERED: albumin (Human) 5% 250ml BOTTLE IV ONE (14:00)
[2019-09-10] MEDS ORDERED: MAGNESIUM SULFATE 4 MEQ/ML (5gm/10ml) injection ONE (14:00)
[2019-09-10] MEDS ORDERED: sodium bicarbonate (8.4%) inj. 1 MEQ/ML ML ONE (14:00)
[2019-09-10] MEDS ORDERED: papaverine 30 mg/ml 2ml inj. ONE (14:00)
[2019-09-10] MEDS ORDERED: heparin 10,000 units/1 ML INJ ONE (14:00)
[2019-09-10] MEDS ORDERED: LIDOcaine 2% (20 mg/ml) 5ml cardiac syringe ONE (14:00)
[2019-09-10] MEDS ORDERED: phenylephrine 10mg/ml inj. ONE (14:00)
[2019-09-10] MEDS: ceFAZolin 1GM/D5W- ADD-VANTAGE 50 ML IV SCH (15:24)
--- NOTE | 2019-09-10 17:24 | NUR ---
Pt. off all gtts. Not waking up yet or following commands. Pt. has cough with thick, secretions requiring lavage through ETT to liquify secretions. VSS. CT output and UO WNL.
--- NOTE | 2019-09-10 18:14 | NUR ---
Problems reprioritized. Patient report given, questions answered & plan of care reviewed with Lianne RIOJAS.
[2019-09-10 18:18] LABS: BASOPHILS % (AUTO) 0.1 % (0-1); EOSINOPHILS % (AUTO) 0 % (0-6); HEMATOCRIT 31.9 % (35.0-45.0); HEMOGLOBIN 10.5 g/dl (12.0-16.0); LYMPHOCYTES # (AUTO) 0.4 X10'3 (1.1-4.8); LYMPHOCYTES % (AUTO) 2.4 % (21-51); MEAN CORPUSCULAR HEMOGLOBIN 30.5 PG (27.0-31.0); MEAN CORPUSCULAR HGB CONC 32.8 g/dL (33.0-36.5); MEAN CORPUSCULAR VOLUME 92.8 FL (78-98); MEAN PLATELET VOLUME 8.7 FL (7.4-10.4); MONOCYTES # (AUTO) 0.5 X10'3 (0-0.9); MONOCYTES % (AUTO) 3.1 % (2-12); NEUTROPHILS # (AUTO) 14.6 X10'3 (1.8-7.7); NEUTROPHILS % (AUTO) 94.4 % (42-75); PLATELET COUNT 75 X10'3 (140-440); RED BLOOD COUNT 3.44 X10'6 (4.20-5.60); RED CELL DISTRIBUTION WIDTH 14.7 % (11.5-14.5); WHITE BLOOD COUNT 15.4 X10'3 (4.5-11.0)
[2019-09-10 18:30] LABS: ALBUMIN 2.9 G/DL (3.4-5.0); ANION GAP 7 (8-16); BLOOD UREA NITROGEN 13 MG/DL (7-18); BUN/CREATININE RATIO 12.5 (6.6-38.0); CALCIUM 8.5 MG/DL (8.5-10.1); CHLORIDE 111 MMOL/L (99-107); CREATININE 1.04 MG/DL (0.40-0.90); GLUCOSE 155 MG/DL (70-104); MAGNESIUM 2.6 MG/DL (1.5-2.4); PHOSPHORUS 2.7 MG/DL (2.3-4.5); POTASSIUM 5.9 MMOL/L (3.5-5.1); SODIUM 140 MMOL/L (135-145); TOTAL CARBON DIOXIDE 22.4 MMOL/L (24-32); eGFR 52 ML/MIN
--- NOTE | 2019-09-10 18:36 | NUR ---
Patient in room CICU 2012. I have received report from Hermila and Karen RNs and had the opportunity to ask questions and assume patient care. Patient intubated, on spontaneous mode and saturating at 97% on 45% FIO2. Patient very drowsy and not yet waking up to verbal or tactile stimulus at this time, not on any sedation. Vitals WNL, all vasoactive infusions off at this time. Will continue to monitor patient closely.
[2019-09-10] MEDS: docusate sod 100mg capsule PO SCH (20:00)
[2019-09-10] MEDS: vancomycin/NS 1 GM ADD-VANTAGE 250 ML IV SCH (20:08)
[2019-09-10 20:10] LABS: ABG BASE EXCESS -6.1 mmol/L (-2.0-3.0); ABG HCO3 18.8 mmol/L (22.0-26.0); ABG OXYGEN SATURATION 97.1 % (95-98); ABG PCO2 (T) 37.6 mmHg (35.0-45.0); ABG PH (T) 7.324 (7.350-7.450); ABG PO2 (T) 105.9 mmHg (83-108); FCOHb 1.1 % (0.5-1.5); FMetHb 0.3 % (0.3-1.12); FO2Hb 95.7 % (94-100); MINUTE VOLUME 20 L/min; PATIENT TEMPERATURE 38.4; PEEP 5 cm H2O; RESPIRATORY RATE 0 b/min; RESPIRATORY RATE (OBSERVED) 26 b/min; TOTAL HEMOGLOBIN 11.8 G/dl (12.0-16.0)
[2019-09-10] MEDS ORDERED: acetaminophen 120MG suppository, rectal RC PRN (20:10)
[2019-09-10] MEDS ORDERED: acetaminophen 650mg rectal suppository RC PRN (21:25)
--- NOTE | 2019-09-10 21:55 | NUR ---
Patient having constant coughing fits when awake. Patient still very sleepy, but weaning parameters were performed and passed. ABG drawn and WNL. Patient extubated and tolerated well, placed on 15L on high flow NC and saturating at 97%. Will continue to monitor patient closely.
[2019-09-11] VITALS (22 sets, daily range): BP systolic 97–143; BP diastolic 9–62
[2019-09-11] MEDS: ceFAZolin 1GM/D5W- ADD-VANTAGE 50 ML IV SCH ×4 (00:32→23:49)
[2019-09-11 05:15] LABS: BASOPHILS % (AUTO) 0 % (0-1); EOSINOPHILS % (AUTO) 0 % (0-6); HEMATOCRIT 30.9 % (35.0-45.0); HEMOGLOBIN 10.3 g/dl (12.0-16.0); LYMPHOCYTES % (AUTO) 5.5 % (21-51); MEAN CORPUSCULAR HEMOGLOBIN 30.8 PG (27.0-31.0); MEAN CORPUSCULAR HGB CONC 33.5 g/dL (33.0-36.5); MEAN CORPUSCULAR VOLUME 92.2 FL (78-98); MEAN PLATELET VOLUME 8.9 FL (7.4-10.4); MONOCYTES # (AUTO) 0.6 X10'3 (0-0.9); NEUTROPHILS # (AUTO) 16.7 X10'3 (1.8-7.7); NEUTROPHILS % (AUTO) 91.5 % (42-75); PLATELET COUNT 79 X10'3 (140-440); RED BLOOD COUNT 3.36 X10'6 (4.20-5.60); RED CELL DISTRIBUTION WIDTH 14.7 % (11.5-14.5); WHITE BLOOD COUNT 18.3 X10'3 (4.5-11.0)
[2019-09-11 05:24] LABS: PARTIAL THROMBOPLASTIN TIME 35 SECONDS (22-32)
[2019-09-11 05:45] LABS: ANION GAP 12 (8-16); BLOOD UREA NITROGEN 14 MG/DL (7-18); BUN/CREATININE RATIO 11.5 (6.6-38.0); CHLORIDE 111 MMOL/L (99-107); CREATININE 1.22 MG/DL (0.40-0.90); GLUCOSE 130 MG/DL (70-104); POTASSIUM 4.8 MMOL/L (3.5-5.1); SODIUM 143 MMOL/L (135-145); TOTAL CARBON DIOXIDE 20.3 MMOL/L (24-32); eGFR 43 ML/MIN
[2019-09-11 05:46] LABS: ALANINE AMINOTRANSFERASE 17 U/L (12-78); ALBUMIN 2.8 G/DL (3.4-5.0); ALBUMIN/GLOBULIN RATIO 1.3 (1.1-1.5); ALKALINE PHOSPHATASE 78 IU/L (46-116); ASPARTATE AMINO TRANSFERASE 49 U/L (10-37); BILIRUBIN,TOTAL 0.5 MG/DL (0.1-1.0); MAGNESIUM 2.4 MG/DL (1.5-2.4); PHOSPHORUS 2.9 MG/DL (2.3-4.5); TOTAL PROTEIN 4.9 G/DL (6.4-8.2)
--- NOTE | 2019-09-11 06:33 | NUR ---
Problems reprioritized. Patient report given, questions answered & plan of care reviewed with Sundeep RIOJAS.
--- NOTE | 2019-09-11 06:48 | NUR ---
Patient in room CICU 2013. I have received report from Lianne RIOJAS and had the opportunity to ask questions and assume patient care.
[2019-09-11] MEDS: docusate sod 100mg capsule PO SCH ×2 (08:00→20:13)
[2019-09-11] MEDS: mupirocin 2% nasal ointment 1gm UD NS SCH ×2 (08:00→20:23)
[2019-09-11] MEDS ORDERED: aspirin 325mg tablet, delayed-release (Ecotrin) PO SCH (08:00)
[2019-09-11] MEDS: budesonide 0.5mg/2ml UD nebule IH SCH ×2 (08:20→20:25)
[2019-09-11] MEDS: aspirin 81mg tablet.DR PO SCH (08:39)
[2019-09-11] MEDS: gabapentin 300mg capsule PO SCH ×4 (08:39→21:57)
[2019-09-11] MEDS: atorvastatin 10mg tablet PO SCH (08:39)
[2019-09-11] MEDS: vancomycin/NS 1 GM ADD-VANTAGE 250 ML IV SCH ×2 (08:40→20:13)
[2019-09-11] MEDS: lactobacillus rhamnosus 10,000 MMU CELLS/CAPSULE PO SCH ×2 (08:40→20:23)
[2019-09-11] MEDS: metoprolol tartrate 12.5mg (1/2 tablet) PO SCH ×2 (08:40→21:08)
[2019-09-11] MEDS: insulin Lispro (HumaLOG) vial - multi-dose SQ SCH ×3 (09:00→18:00)
[2019-09-11] MEDS: insulin regular, human inj. 100 UNITS in normal saline 100ml IV soln 100 ML IV SCH ×2 (11:55)
[2019-09-11] MEDS: insulin regular, human 100 UNIT in normal saline 100ml IV soln 100 ML IV SCH ×2 (14:50)
[2019-09-11] MEDS: HYDROcodone/acetaminophen 5mg/325mg tablet PO PRN (15:56)
--- NOTE | 2019-09-11 16:51 | NUR ---
patient up with PT, was up to the chair for about three hours and then back to bed
--- NOTE | 2019-09-11 18:30 | NUR ---
Patient in room CICU 2013. I have received report from Germaine RIOJAS and had the opportunity to ask questions and assume patient care. Patient resting in bed, appears mildly painful, but otherwise in no apparent distress. Vitals WNL, oxygen saturation above 95% on 5L NC. Will continue to monitor patient closely.
[2019-09-11] MEDS: ipratropium/albuterol 3ml nebule IH PRN (20:25)
[2019-09-11] MEDS: lisinopril 2.5mg tablet PO SCH (21:00)
--- NOTE | 2019-09-11 22:15 | NUR ---
Patient refusing sternal vest. Patient able to demonstrate proper sternal precautions with use of pillow, able to verbalize when to use sternal precautions, demonstrated proper sternal precautions when coughing and with repositioning in bed. Sternal vest removed, left in room.
--- NOTE | 2019-09-11 22:37 | NUR ---
Problems reprioritized. Patient report given, questions answered & plan of care reviewed with Madison RIOJAS.
--- NOTE | 2019-09-11 23:05 | NUR ---
Patient in room CICU 2013. I have received report from SHINE Abdalla and had the opportunity to ask questions and assume patient care.
[2019-09-12] VITALS (24 sets, daily range): BP systolic 82–118; BP diastolic 37–59
[2019-09-12 02:30] LABS: BASOPHILS # (AUTO) 0.1 X10'3 (0-0.2); BASOPHILS % (AUTO) 0.3 % (0-1); EOSINOPHILS % (AUTO) 0.1 % (0-6); HEMATOCRIT 30.6 % (35.0-45.0); HEMOGLOBIN 10.1 g/dl (12.0-16.0); LYMPHOCYTES % (AUTO) 5.6 % (21-51); MEAN CORPUSCULAR HEMOGLOBIN 30.9 PG (27.0-31.0); MEAN CORPUSCULAR HGB CONC 33.2 g/dL (33.0-36.5); MEAN PLATELET VOLUME 9.1 FL (7.4-10.4); MONOCYTES # (AUTO) 0.7 X10'3 (0-0.9); MONOCYTES % (AUTO) 3.5 % (2-12); NEUTROPHILS # (AUTO) 16.7 X10'3 (1.8-7.7); NEUTROPHILS % (AUTO) 90.5 % (42-75); PLATELET COUNT 95 X10'3 (140-440); RED BLOOD COUNT 3.29 X10'6 (4.20-5.60); RED CELL DISTRIBUTION WIDTH 14.8 % (11.5-14.5); WHITE BLOOD COUNT 18.5 X10'3 (4.5-11.0)
[2019-09-12 02:53] LABS: ALBUMIN 2.7 G/DL (3.4-5.0); ANION GAP 6 (8-16); BLOOD UREA NITROGEN 17 MG/DL (7-18); BUN/CREATININE RATIO 14.9 (6.6-38.0); CALCIUM 8.7 MG/DL (8.5-10.1); CHLORIDE 107 MMOL/L (99-107); CREATININE 1.14 MG/DL (0.40-0.90); GLUCOSE 153 MG/DL (70-104); MAGNESIUM 2.2 MG/DL (1.5-2.4); PHOSPHORUS 3.1 MG/DL (2.3-4.5); POTASSIUM 4.7 MMOL/L (3.5-5.1); SODIUM 138 MMOL/L (135-145); eGFR 46 ML/MIN
[2019-09-12] MEDS: magnesium 2GM in 50ml NS 50 ML IV PRN (04:36)
[2019-09-12] MEDS ORDERED: amiodarone/D5 360MG/200ML BAG 200 ML IV ONE (05:47)
[2019-09-12] MEDS ORDERED: amiodarone 150mg/dext, iso-os 100 ML IV ONE ×2 (05:47→05:50)
[2019-09-12] MEDS: amiodarone/D5 360MG/200ML BAG 200 ML IV SCH ×3 (05:50→17:46)
--- NOTE | 2019-09-12 06:45 | NUR ---
Assumed care of pt. Pt resting in bed comfortably will cont to monitor
[2019-09-12] MEDS ORDERED: furosemide 20 MG/2 ML vial IV ONE (06:50)
--- NOTE | 2019-09-12 07:01 | NUR ---
Chest tube DC by PA. Pt tolerated well.
[2019-09-12] MEDS: gabapentin 300mg capsule PO SCH (07:41)
[2019-09-12] MEDS: aspirin 81mg tablet.DR PO SCH (07:41)
[2019-09-12] MEDS: metoprolol tartrate 12.5mg (1/2 tablet) PO SCH ×2 (07:42→20:00)
[2019-09-12] MEDS: lactobacillus rhamnosus 10,000 MMU CELLS/CAPSULE PO SCH ×2 (07:43→20:19)
[2019-09-12] MEDS: atorvastatin 10mg tablet PO SCH (07:43)
[2019-09-12] MEDS: ipratropium/albuterol 3ml nebule IH PRN ×2 (07:43→20:43)
[2019-09-12] MEDS: pantoprazole 40mg Tablet.DR PO SCH (07:44)
[2019-09-12] MEDS: budesonide 0.5mg/2ml UD nebule IH SCH ×2 (07:44→20:43)
[2019-09-12] MEDS: acetaminophen 325mg tablet PO PRN (07:47)
[2019-09-12] MEDS: HYDROcodone/acetaminophen 5mg/325mg tablet PO PRN ×2 (07:51→11:34)
[2019-09-12] MEDS: docusate sod 100mg capsule PO SCH ×3 (07:53→20:19)
[2019-09-12] MEDS: mupirocin 2% nasal ointment 1gm UD NS SCH (08:00)
[2019-09-12] MEDS: epiNEPHrine inj 5 MG, calcium chloride inj. 1,000 MG in normal saline 250ml IV soln 250 ML IV SCH (08:05)
[2019-09-12] MEDS: insulin Lispro (HumaLOG) vial - multi-dose SQ SCH ×3 (09:00→18:00)
[2019-09-12] MEDS: sodium chloride 0.45% 1,000 ML IV SCH (11:53)
--- NOTE | 2019-09-12 18:30 | NUR ---
Patient in room CICU 2013. I have received report from SHINE Dawson and had the opportunity to ask questions and assume patient care.
[2019-09-12] MEDS: lisinopril 2.5mg tablet PO SCH (21:00)
[2019-09-13] VITALS (19 sets, daily range): BP systolic 88–129; BP diastolic 37–56
[2019-09-13] MEDS: insulin regular, human 100 UNIT in normal saline 100ml IV soln 100 ML IV SCH ×2 (00:10)
[2019-09-13] MEDS: amiodarone/D5 360MG/200ML BAG 200 ML IV SCH ×2 (00:39→05:22)
[2019-09-13 03:47] LABS: HEMATOCRIT 29.2 % (35.0-45.0); HEMOGLOBIN 9.8 g/dl (12.0-16.0); MEAN CORPUSCULAR HEMOGLOBIN 31.1 PG (27.0-31.0); MEAN CORPUSCULAR HGB CONC 33.5 g/dL (33.0-36.5); MEAN CORPUSCULAR VOLUME 92.7 FL (78-98); PLATELET COUNT 95 X10'3 (140-440); RED BLOOD COUNT 3.15 X10'6 (4.20-5.60); RED CELL DISTRIBUTION WIDTH 14.8 % (11.5-14.5); WHITE BLOOD COUNT 10.3 X10'3 (4.5-11.0)
[2019-09-13 03:48] LABS: BASOPHILS % (AUTO) 0.2 % (0-1); EOSINOPHILS % (AUTO) 0.1 % (0-6); LYMPHOCYTES # (AUTO) 1.2 X10'3 (1.1-4.8); LYMPHOCYTES % (AUTO) 11.5 % (21-51); MEAN PLATELET VOLUME 9.2 FL (7.4-10.4); MONOCYTES # (AUTO) 0.7 X10'3 (0-0.9); MONOCYTES % (AUTO) 6.5 % (2-12); NEUTROPHILS # (AUTO) 8.4 X10'3 (1.8-7.7); NEUTROPHILS % (AUTO) 81.7 % (42-75)
[2019-09-13 03:57] LABS: ALBUMIN 2.5 G/DL (3.4-5.0); ANION GAP 7 (8-16); BLOOD UREA NITROGEN 18 MG/DL (7-18); BUN/CREATININE RATIO 18.6 (6.6-38.0); CALCIUM 8.6 MG/DL (8.5-10.1); CHLORIDE 107 MMOL/L (99-107); CREATININE 0.97 MG/DL (0.40-0.90); GLUCOSE 110 MG/DL (70-104); MAGNESIUM 2.2 MG/DL (1.5-2.4); PHOSPHORUS 2.6 MG/DL (2.3-4.5); POTASSIUM 3.8 MMOL/L (3.5-5.1); SODIUM 141 MMOL/L (135-145); TOTAL CARBON DIOXIDE 26.7 MMOL/L (24-32); eGFR 56 ML/MIN
[2019-09-13] MEDS: potassium Cl 20mEq/100mL bag 100 ML IV PRN ×2 (04:17→05:21)
--- NOTE | 2019-09-13 06:19 | NUR ---
Problems reprioritized. Patient report given, questions answered & plan of care reviewed with SHINE Ramirez.
--- NOTE | 2019-09-13 07:17 | NUR ---
Patient in room CICU 2013. I have received report from SHINE Patterson and had the opportunity to ask questions and assume patient care.
[2019-09-13] MEDS: aspirin 81mg tablet.DR PO SCH (07:34)
[2019-09-13] MEDS: atorvastatin 10mg tablet PO SCH (07:34)
[2019-09-13] MEDS: pantoprazole 40mg Tablet.DR PO SCH (07:34)
[2019-09-13] MEDS: docusate sod 100mg capsule PO SCH ×2 (07:35→21:17)
[2019-09-13] MEDS: lactobacillus rhamnosus 10,000 MMU CELLS/CAPSULE PO SCH ×2 (07:35→21:17)
[2019-09-13] MEDS: magnesium 2GM in 50ml NS 50 ML IV PRN (07:39)
[2019-09-13] MEDS ORDERED: potassium Cl 20 mEq SR tablet PO PRN (07:55)
[2019-09-13] MEDS ORDERED: magnesium 4gm in 100ml NS 100 ML IV PRN (07:55)
[2019-09-13] MEDS ORDERED: potassium Cl 20mEq/100mL bag 100 ML IV PRN (07:55)
[2019-09-13] MEDS: metoprolol tartrate 12.5mg (1/2 tablet) PO SCH ×2 (07:56→21:16)
[2019-09-13] MEDS: benzocaine/menthol oral lozeng 1 EACH BOX MM PRN ×3 (07:57→15:46)
[2019-09-13] MEDS: budesonide 0.5mg/2ml UD nebule IH SCH ×2 (07:59→20:16)
[2019-09-13] MEDS: ipratropium/albuterol 3ml nebule IH PRN (07:59)
--- NOTE | 2019-09-13 09:00 | NUR ---
pt. blood glucose was 67 before breakfast. pt. was experiencing some light headedness that has been ongoing from her hypotension. when questioned pt. stated she had no other signs and symptoms of hypoglycemia. pt. was given breakfast and has been asymptomatic since.
[2019-09-13] MEDS: potassium Cl 20 mEq SR tablet PO SCH ×2 (09:06→21:16)
[2019-09-13] MEDS: amiodarone 200mg tablet PO SCH ×2 (09:06→21:16)
[2019-09-13] MEDS: magnesium Cl slow-release 64mg tablet PO SCH ×2 (09:06→20:00)
[2019-09-13] MEDS: HYDROcodone/acetaminophen 5mg/325mg tablet PO PRN ×2 (11:33→18:49)
--- NOTE | 2019-09-13 13:21 | NUR ---
PRESSURE ULCER EDUCATION: DEFINITION: A pressure ulcer is an area of skin that breaks down when you stay in one position too long. The constant pressure against the skin reduces the blood flow to that area and the affected tissue dies. CAUSES: "Being bedridden or in a wheelchair "Fragile skin "Having a chronic condition, such as diabetes or vascular disease "Inability to move certain parts of your body without assistance "Older age "Incontinence of urine or stool SYMPTOMS: "A reddened area that DOES NOT turn white when pressed on - this can be the beginning of a pressure ulcer "A blister, deep sore or a crater - these can be advanced pressure ulcers FIRST AID: "Relieve the pressure on this area "Keep the area clean and dry "Call your primary doctor if you see any of the above symptoms "DO NOT massage the area "DO NOT use a donut shaped or ring shaped pillow- these actually interfere with the blood flow and cause complications PREVENTION: "Check for pressure ulcers everyday "Change position at least every two hours to relieve pressure "Use items that help relieve pressure- pillows, sheepskin, foam padding, and powders. "Keep skin clean and dry "Eat healthy well balanced meals "Exercise daily IF YOU SEE ANY OF THESE SYMPTOMS WHILE IN THE HOSPITAL - TELL YOUR NURSE IMMEDIATELY. IF YOU SEE ANY OF THESE SYMPTOMS WHILE AT HOME OR HAVE ANY QUESTIONS OR CONCERNS ABOUT PRESSURE ULCERS - CALL YOUR PRIMARY DOCTOR IMMEDIATELY. Addendum: 09/13/19 at 1322 by Leeann Gibbs RN Amended: Links added.
--- NOTE | 2019-09-13 14:40 | NUR ---
Problems reprioritized. Patient report given, questions answered & plan of care reviewed with SHINE Hodge.
--- NOTE | 2019-09-13 14:43 | NUR ---
Patient in room CICU 2012. I have received report from SHINE German from CICU and had the opportunity to ask questions and assume patient care.
--- NOTE | 2019-09-13 14:55 | NUR ---
Patient brought to floor via WC by nursing staff. Patient is stable, no s/s of distress. Vitals at patients baseline. All questions and concerns addressed.
--- NOTE | 2019-09-13 15:59 | NUR ---
Pt reports her BM baseline is about once every week. Addendum: 09/13/19 at 1607 by Ayesha Buck RN Amended: Links added.
--- NOTE | 2019-09-13 16:05 | NUR ---
Patient has multiple scattered small cuts and bruises. Addendum: 09/13/19 at 1607 by Ayesha Buck RN Amended: Links added.
--- NOTE | 2019-09-13 17:56 | NUR ---
Problems reprioritized. Patient report given, questions answered & plan of care reviewed with SHINE Meléndez
--- NOTE | 2019-09-13 18:25 | NUR ---
Orienteer documentation: I have reviewed and agree with interventions, assessments performed and documented by SHINE Hodge. Orienteer Medication Administration: For this medication-pass time frame, medication were reviewed, dispensed, administered and documented per hospital policy by Maxwell Hodge RN.
[2019-09-13] MEDS: lisinopril 2.5mg tablet PO SCH (21:17)
[2019-09-14] VITALS (8 sets, daily range): BP systolic 86–114; BP diastolic 42–57
--- NOTE | 2019-09-14 04:20 | NUR ---
Called Dr. Boateng regarding the EKG changes from NSR to A Fib and A Flutter with BP of 99/57, heart rate of 122. He acknowledged the issue and ordered another dose of amiodarone 100 PO. No other orders were given at this time. Addendum: 09/14/19 at 0426 by Rika Lopez RN amiodarone 200mg Oral once not 100 mg PO.
[2019-09-14] MEDS ORDERED: amiodarone 200mg tablet PO ONE (04:30)
[2019-09-14] MEDS: HYDROcodone/acetaminophen 5mg/325mg tablet PO PRN ×2 (04:37→21:13)
[2019-09-14 04:54] LABS: ALBUMIN 2.5 G/DL (3.4-5.0); ANION GAP 6 (8-16); BLOOD UREA NITROGEN 14 MG/DL (7-18); BUN/CREATININE RATIO 14.3 (6.6-38.0); CALCIUM 8.9 MG/DL (8.5-10.1); CHLORIDE 106 MMOL/L (99-107); CREATININE 0.98 MG/DL (0.40-0.90); GLUCOSE 102 MG/DL (70-104); POTASSIUM 4.5 MMOL/L (3.5-5.1); SODIUM 138 MMOL/L (135-145); TOTAL CARBON DIOXIDE 25.9 MMOL/L (24-32); eGFR 55 ML/MIN
[2019-09-14 04:57] LABS: BASOPHILS # (AUTO) 0.1 X10'3 (0-0.2); BASOPHILS % (AUTO) 1.2 % (0-1); EOSINOPHILS # (AUTO) 0.1 X10'3 (0-0.9); EOSINOPHILS % (AUTO) 1.3 % (0-6); HEMATOCRIT 32.6 % (35.0-45.0); HEMOGLOBIN 11.1 g/dl (12.0-16.0); LYMPHOCYTES # (AUTO) 1.1 X10'3 (1.1-4.8); LYMPHOCYTES % (AUTO) 10.5 % (21-51); MEAN CORPUSCULAR HEMOGLOBIN 30.9 PG (27.0-31.0); MEAN CORPUSCULAR HGB CONC 34.1 g/dL (33.0-36.5); MEAN CORPUSCULAR VOLUME 90.7 FL (78-98); MEAN PLATELET VOLUME 9.4 FL (7.4-10.4); MONOCYTES # (AUTO) 0.8 X10'3 (0-0.9); MONOCYTES % (AUTO) 7.3 % (2-12); NEUTROPHILS # (AUTO) 8.3 X10'3 (1.8-7.7); NEUTROPHILS % (AUTO) 79.7 % (42-75); PLATELET COUNT 135 X10'3 (140-440); RED BLOOD COUNT 3.59 X10'6 (4.20-5.60); RED CELL DISTRIBUTION WIDTH 14.8 % (11.5-14.5); WHITE BLOOD COUNT 10.5 X10'3 (4.5-11.0)
[2019-09-14 06:15] LABS: MAGNESIUM 2.2 MG/DL (1.5-2.4)
--- NOTE | 2019-09-14 06:15 | NUR ---
Problems reprioritized. Patient report given, questions answered & plan of care reviewed with Rika RIOJAS. Addendum: 09/14/19 at 0649 by Cristina Green RN Patient in room MED 315. I have received report from Rika RIOJAS and had the opportunity to ask questions and assume patient care.
--- NOTE | 2019-09-14 06:24 | NUR ---
Problems reprioritized. Patient report given Shana, questions answered & plan of care reviewed with .
[2019-09-14] MEDS ORDERED: amiodarone 150mg/dext, iso-os 100 ML IV ONE (07:00)
[2019-09-14] MEDS: budesonide 0.5mg/2ml UD nebule IH SCH ×2 (07:03→20:57)
[2019-09-14] MEDS: ipratropium/albuterol 3ml nebule IH PRN ×2 (07:03→20:57)
[2019-09-14] MEDS: aspirin 81mg tablet.DR PO SCH (07:19)
[2019-09-14] MEDS: magnesium Cl slow-release 64mg tablet PO SCH ×2 (07:20→20:04)
[2019-09-14] MEDS: lactobacillus rhamnosus 10,000 MMU CELLS/CAPSULE PO SCH ×2 (07:20→20:04)
[2019-09-14] MEDS: amiodarone 200mg tablet PO SCH ×2 (07:20→20:05)
[2019-09-14] MEDS: metoprolol tartrate 12.5mg (1/2 tablet) PO SCH ×3 (07:20→20:05)
[2019-09-14] MEDS: atorvastatin 10mg tablet PO SCH (07:20)
[2019-09-14] MEDS: docusate sod 100mg capsule PO SCH ×2 (07:20→20:04)
[2019-09-14] MEDS: potassium Cl 20 mEq SR tablet PO SCH ×2 (07:26→20:00)
[2019-09-14] MEDS: pantoprazole 40mg Tablet.DR PO SCH ×3 (07:27→20:00)
--- NOTE | 2019-09-14 07:44 | NUR ---
Patient converted to NSR at this time, Amiodarone IV loading dose complete.
[2019-09-14] MEDS: magnesium 2GM in 50ml NS 50 ML IV PRN (11:00)
--- NOTE | 2019-09-14 11:09 | NUR ---
Made a phone call to ZEINA AHUMADA regarding patient's low BP, she is asymptomatic. Waiting on callback.
[2019-09-14] MEDS: lactose-reduced food (Ensure High Protein) 237ml bottle PO SCH ×2 (13:00→18:00)
--- NOTE | 2019-09-14 15:36 | NUR ---
Reassessment: Met with patient and her daughter at bedside to provide written post cardiac surgery education handout and heart healthy education handout with verbal review. Discussed importance of protein for wound healing. 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 Agrees to try Ensure High Protein with meals. She reports some difficulty chewing meat, wants to try chopped meats with extra gravy, d/w dietary. Spoke with bedside RN, reports patient had two normal BMs today. She is receiving colace BID. Will continue to follow. Recommendations: 1) Continue no concentrated sweets diet 2) Ensure high protein with all meals 3) Routine bowel care; consider promotility/opioid antagonist in view of receiving norco 4) Wt per rx Addendum: 09/14/19 at [address] Amended: Links added.
--- NOTE | 2019-09-14 18:15 | NUR ---
Problems reprioritized. Patient report given, questions answered & plan of care reviewed with Rika RIOJAS.
[2019-09-14] MEDS: amitriptyline 10mg tablet PO SCH (21:12)
[2019-09-15 02:00] VITALS: BP 99/45
[2019-09-15 03:11] LABS: BASOPHILS % (AUTO) 0.5 % (0-1); EOSINOPHILS # (AUTO) 0.1 X10'3 (0-0.9); EOSINOPHILS % (AUTO) 1.1 % (0-6); HEMATOCRIT 30.9 % (35.0-45.0); HEMOGLOBIN 10.4 g/dl (12.0-16.0); LYMPHOCYTES % (AUTO) 11.1 % (21-51); MEAN CORPUSCULAR HEMOGLOBIN 30.8 PG (27.0-31.0); MEAN CORPUSCULAR HGB CONC 33.6 g/dL (33.0-36.5); MEAN CORPUSCULAR VOLUME 91.6 FL (78-98); MEAN PLATELET VOLUME 8.8 FL (7.4-10.4); MONOCYTES # (AUTO) 0.8 X10'3 (0-0.9); MONOCYTES % (AUTO) 8.6 % (2-12); NEUTROPHILS # (AUTO) 7.1 X10'3 (1.8-7.7); NEUTROPHILS % (AUTO) 78.7 % (42-75); PLATELET COUNT 149 X10'3 (140-440); RED BLOOD COUNT 3.38 X10'6 (4.20-5.60); RED CELL DISTRIBUTION WIDTH 14.5 % (11.5-14.5); WHITE BLOOD COUNT 9.1 X10'3 (4.5-11.0)
[2019-09-15 03:15] LABS: GLUCOSE 113 MG/DL (70-104); SODIUM 138 MMOL/L (135-145)
[2019-09-15 03:16] LABS: ALBUMIN 2.3 G/DL (3.4-5.0); ANION GAP 8 (8-16); BLOOD UREA NITROGEN 16 MG/DL (7-18); BUN/CREATININE RATIO 16.5 (6.6-38.0); CALCIUM 8.6 MG/DL (8.5-10.1); CHLORIDE 105 MMOL/L (99-107); CREATININE 0.97 MG/DL (0.40-0.90); POTASSIUM 4.2 MMOL/L (3.5-5.1); TOTAL CARBON DIOXIDE 25.3 MMOL/L (24-32); eGFR 56 ML/MIN
[2019-09-15 06:00] VITALS: BP 107/50
[2019-09-15] MEDS: potassium Cl 20 mEq SR tablet PO SCH ×2 (08:18→17:01)
[2019-09-15] MEDS: magnesium Cl slow-release 64mg tablet PO SCH ×2 (08:18→20:00)
[2019-09-15] MEDS: amiodarone 200mg tablet PO SCH ×3 (08:18→21:22)
[2019-09-15] MEDS: docusate sod 100mg capsule PO SCH ×2 (08:20→20:00)
[2019-09-15] MEDS: metoprolol tartrate 12.5mg (1/2 tablet) PO SCH ×2 (08:21→20:03)
[2019-09-15] MEDS: lactobacillus rhamnosus 10,000 MMU CELLS/CAPSULE PO SCH ×2 (08:22→20:02)
[2019-09-15] MEDS: aspirin 81mg tablet.DR PO SCH (08:22)
[2019-09-15] MEDS: lactose-reduced food (Ensure High Protein) 237ml bottle PO SCH ×3 (08:22→18:00)
[2019-09-15] MEDS: pantoprazole 40mg Tablet.DR PO SCH ×2 (08:22→20:02)
[2019-09-15 08:50] LABS: MAGNESIUM 2.1 MG/DL (1.5-2.4)
[2019-09-15] MEDS: budesonide 0.5mg/2ml UD nebule IH SCH ×2 (09:05→19:24)
[2019-09-15 11:00] VITALS: BP 98/47
[2019-09-15] MEDS: acetaminophen 325mg tablet PO PRN (14:31)
[2019-09-15 15:00] VITALS: BP 104/47
[2019-09-15] MEDS ORDERED: tPA-cathflo 2 MG/2 ml IV flush IVF ONE ×3 (16:55)
[2019-09-15] MEDS: magnesium 2GM in 50ml NS 50 ML IV PRN (17:01)
[2019-09-15] MEDS ORDERED: diphenhydrAMINE 25mg capsule PO PRN (17:35)
[2019-09-15 18:00] VITALS: BP 97/62
--- NOTE | 2019-09-15 18:00 | NUR ---
Problems reprioritized. Patient report given, questions answered & plan of care reviewed with SHINE Meléndez.
[2019-09-15] MEDS: HYDROcodone/acetaminophen 5mg/325mg tablet PO PRN (18:55)
[2019-09-15] MEDS: atorvastatin 10mg tablet PO SCH (20:02)
[2019-09-15] MEDS: amitriptyline 10mg tablet PO SCH (20:03)
--- NOTE | 2019-09-15 21:39 | NUR ---
Called Dr. Boateng and informed him regarding the patient's HR rate being in 130's and A flutter. He ordered Amiodarone drip per protocol. No other orders were given at this time.
[2019-09-15 22:00] VITALS: BP 109/67
[2019-09-15] MEDS: amiodarone/D5 360MG/200ML BAG 200 ML IV SCH (22:07)
[2019-09-16] VITALS (11 sets, daily range): BP systolic 102–134; BP diastolic 49–83
[2019-09-16] MEDS: HYDROcodone/acetaminophen 5mg/325mg tablet PO PRN ×3 (01:53→20:48)
[2019-09-16 03:33] LABS: BASOPHILS # (AUTO) 0.1 X10'3 (0-0.2); BASOPHILS % (AUTO) 0.8 % (0-1); EOSINOPHILS # (AUTO) 0.1 X10'3 (0-0.9); EOSINOPHILS % (AUTO) 1.3 % (0-6); HEMATOCRIT 34.1 % (35.0-45.0); HEMOGLOBIN 11.5 g/dl (12.0-16.0); LYMPHOCYTES # (AUTO) 1.2 X10'3 (1.1-4.8); LYMPHOCYTES % (AUTO) 12.7 % (21-51); MEAN CORPUSCULAR HEMOGLOBIN 30.8 PG (27.0-31.0); MEAN CORPUSCULAR HGB CONC 33.8 g/dL (33.0-36.5); MEAN CORPUSCULAR VOLUME 91.1 FL (78-98); MEAN PLATELET VOLUME 8.8 FL (7.4-10.4); MONOCYTES # (AUTO) 0.8 X10'3 (0-0.9); MONOCYTES % (AUTO) 8.6 % (2-12); NEUTROPHILS # (AUTO) 7.4 X10'3 (1.8-7.7); NEUTROPHILS % (AUTO) 76.6 % (42-75); PLATELET COUNT 208 X10'3 (140-440); RED BLOOD COUNT 3.74 X10'6 (4.20-5.60); RED CELL DISTRIBUTION WIDTH 14.4 % (11.5-14.5); WHITE BLOOD COUNT 9.7 X10'3 (4.5-11.0)
[2019-09-16 03:41] LABS: MAGNESIUM 1.8 MG/DL (1.5-2.4)
[2019-09-16] MEDS: amiodarone/D5 360MG/200ML BAG 200 ML IV SCH ×4 (03:53→17:10)
[2019-09-16 04:03] LABS: ALBUMIN 2.3 G/DL (3.4-5.0); ANION GAP 10 (8-16); BLOOD UREA NITROGEN 20 MG/DL (7-18); BUN/CREATININE RATIO 20.2 (6.6-38.0); CALCIUM 8.6 MG/DL (8.5-10.1); CHLORIDE 106 MMOL/L (99-107); CREATININE 0.99 MG/DL (0.40-0.90); GLUCOSE 127 MG/DL (70-104); POTASSIUM 4.2 MMOL/L (3.5-5.1); SODIUM 137 MMOL/L (135-145); TOTAL CARBON DIOXIDE 21.3 MMOL/L (24-32); eGFR 55 ML/MIN
--- NOTE | 2019-09-16 05:47 | NUR ---
Called Dr. Boateng and informed him that the patient's heart rhythm has not changed from 130's since we started her on amiodarone drip per protocol. He acknowledged it but did not order anything at this time.
--- NOTE | 2019-09-16 06:20 | NUR ---
Patient in room MED 315. I have received report from SHINE Meléndez and had the opportunity to ask questions and assume patient care.
[2019-09-16] MEDS: docusate sod 100mg capsule PO SCH ×3 (08:00→20:00)
[2019-09-16] MEDS: budesonide 0.5mg/2ml UD nebule IH SCH ×2 (08:31→20:01)
[2019-09-16] MEDS: lactobacillus rhamnosus 10,000 MMU CELLS/CAPSULE PO SCH ×2 (08:42→20:00)
[2019-09-16] MEDS: magnesium Cl slow-release 64mg tablet PO SCH ×2 (08:42→20:00)
[2019-09-16] MEDS: aspirin 81mg tablet.DR PO SCH (08:42)
[2019-09-16] MEDS: pantoprazole 40mg Tablet.DR PO SCH ×2 (08:42→20:46)
[2019-09-16] MEDS: potassium Cl 20 mEq SR tablet PO SCH ×2 (08:43→20:46)
[2019-09-16] MEDS: amiodarone 200mg tablet PO SCH ×3 (08:43→20:46)
[2019-09-16] MEDS: metoprolol tartrate 12.5mg (1/2 tablet) PO SCH ×2 (08:52→20:47)
[2019-09-16] MEDS: lactose-reduced food (Ensure High Protein) 237ml bottle PO SCH ×3 (08:52→18:00)
--- NOTE | 2019-09-16 13:29 | NUR ---
Patient has given staff permission to speak with her sister, Mell Contreras, if she calls.
--- NOTE | 2019-09-16 15:01 | NUR ---
Called Filippo regarding pts A-fib/A-flutter and HR of 120s-130s since 0300 this morning and her increased symptoms of fatigue and SOB, he deferred to Kilo. Called Kilo and reported pts increased symptomatic status, reported her electrolyte levels of K-4.2 which was replaced this a.m. and a Mag of 2.5. Kilo said to "stay the course". Will continue to monitor.
--- NOTE | 2019-09-16 17:02 | NUR ---
DR. DALTON CALLED UPDATED ABOUT PATIENTS CONDITION, ST 130S-140, WHEN HR SLOWS < 120 CONVERTS TO AFLUTTER. PATIENT IS FEELING TIRED " IF JOSELINE BEEN WORKING OUT ALL DAY" KRYSTLE IMFORMED THAT IF PATIENT REMAINS ELEVATED AND AFLUTTER HE WILL ATTEMPT TO CARDIOVERT HER. NEW ORDERS RECEIVED: NPO AT MIDNIGHT TO PREP FOR CARDIOVERSION. WILL CONTINUE TO MONITOR
--- NOTE | 2019-09-16 18:02 | NUR ---
Problems reprioritized. Patient report given, questions answered & plan of care reviewed with SHINE Meléndez.
--- NOTE | 2019-09-16 18:08 | NUR ---
Student documentation: I have reviewed and agree with all interventions, assessments performed and documented by Shanon RIOJAS.
[2019-09-16] MEDS: atorvastatin 10mg tablet PO SCH (20:46)
[2019-09-16] MEDS: amitriptyline 10mg tablet PO SCH (20:46)
[2019-09-17] VITALS (8 sets, daily range): BP systolic 91–118; BP diastolic 46–57
[2019-09-17 03:36] LABS: ALBUMIN 2.5 G/DL (3.4-5.0); ANION GAP 11 (8-16); BLOOD UREA NITROGEN 14 MG/DL (7-18); BUN/CREATININE RATIO 13.9 (6.6-38.0); CHLORIDE 105 MMOL/L (99-107); CREATININE 1.01 MG/DL (0.40-0.90); GLUCOSE 117 MG/DL (70-104); MAGNESIUM 1.9 MG/DL (1.5-2.4); POTASSIUM 4.5 MMOL/L (3.5-5.1); SODIUM 137 MMOL/L (135-145); TOTAL CARBON DIOXIDE 21.4 MMOL/L (24-32); eGFR 53 ML/MIN
[2019-09-17] MEDS: amiodarone/D5 360MG/200ML BAG 200 ML IV SCH (04:24)
[2019-09-17] MEDS: ondansetron/PF 4mg/2ml inj IV PRN ×2 (05:50→18:58)
--- NOTE | 2019-09-17 06:20 | NUR ---
Patient in room MED 315. I have received report from SHINE Meléndez and had the opportunity to ask questions and assume patient care.
--- NOTE | 2019-09-17 06:28 | NUR ---
Problems reprioritized. Patient report given to Lulú-RN and CammieRN, questions answered & plan of care reviewed with .
[2019-09-17] MEDS: lactobacillus rhamnosus 10,000 MMU CELLS/CAPSULE PO SCH ×3 (07:58→22:14)
[2019-09-17] MEDS: magnesium Cl slow-release 64mg tablet PO SCH ×2 (07:58→22:15)
[2019-09-17] MEDS: amiodarone 200mg tablet PO SCH ×3 (07:59→22:15)
[2019-09-17] MEDS: pantoprazole 40mg Tablet.DR PO SCH ×2 (07:59→22:15)
[2019-09-17] MEDS: aspirin 81mg tablet.DR PO SCH (07:59)
[2019-09-17] MEDS: docusate sod 100mg capsule PO SCH ×3 (07:59→22:16)
[2019-09-17] MEDS: potassium Cl 20 mEq SR tablet PO SCH ×3 (08:00→22:15)
[2019-09-17] MEDS ORDERED: MIDAZolam 5mg/ml 2ml vial IV PRN (08:00)
[2019-09-17] MEDS: lactose-reduced food (Ensure High Protein) 237ml bottle PO SCH ×3 (08:00→18:59)
[2019-09-17] MEDS: metoprolol tartrate 12.5mg (1/2 tablet) PO SCH ×2 (08:00→22:18)
[2019-09-17] MEDS ORDERED: morphine 10mg/ml inj. IV PRN (08:00)
[2019-09-17] MEDS: budesonide 0.5mg/2ml UD nebule IH SCH ×2 (08:48→19:37)
--- NOTE | 2019-09-17 10:00 | NUR ---
AMIODARONE GTT OFF AT 1000. NSR, HR 63 BPM.
[2019-09-17 10:49] LABS: BASOPHILS # (AUTO) 0.1 X10'3 (0-0.2); BASOPHILS % (AUTO) 0.8 % (0-1); EOSINOPHILS # (AUTO) 0.1 X10'3 (0-0.9); EOSINOPHILS % (AUTO) 0.7 % (0-6); HEMATOCRIT 35.3 % (35.0-45.0); LYMPHOCYTES # (AUTO) 1.3 X10'3 (1.1-4.8); LYMPHOCYTES % (AUTO) 11.9 % (21-51); MEAN CORPUSCULAR HEMOGLOBIN 30.5 PG (27.0-31.0); MEAN CORPUSCULAR VOLUME 89.7 FL (78-98); MEAN PLATELET VOLUME 8.2 FL (7.4-10.4); MONOCYTES # (AUTO) 0.9 X10'3 (0-0.9); MONOCYTES % (AUTO) 7.6 % (2-12); PLATELET COUNT 300 X10'3 (140-440); RED BLOOD COUNT 3.94 X10'6 (4.20-5.60); RED CELL DISTRIBUTION WIDTH 14.6 % (11.5-14.5); WHITE BLOOD COUNT 11.3 X10'3 (4.5-11.0)
[2019-09-17] MEDS: HYDROcodone/acetaminophen 5mg/325mg tablet PO PRN (13:50)
--- NOTE | 2019-09-17 14:59 | NUR ---
Patient refused Physical Therapy, ambulation with nursing, and use of incentive spirometry today. Education and reinforcement provided on benefits and importance of ambulation and incentive spirometry.
--- NOTE | 2019-09-17 17:05 | NUR ---
Reassessment: Pt continues with poor PO intake documented with 0-25% of meals and ONS not meeting nutrient needs. Pt seen at bedside endorses a low appetite and states it has decreased since admit. Pt receiving cottage cheese QD at breakfast which pt reports she's eating and denies any additional food preferences or increase in frequency of receiving cottage cheese at this time. Pt states she would like to continue with the chopped meat with extra gravy and denies additional texture modification at this time. Pt reports she is getting tired of the ONS, RD encouraged pt to consume more of meals in order to be able to d/c ONS as pt currently isn't meeting nutrient needs. Pt provided with RD contact information. [facility] 09/16. Will continue to follow closely. Recommendations: 1) Continue no concentrated sweets diet; Encourage PO intake 2) Ensure high protein TIDWM 3) Cottage cheese QD at breakfast 4) Routine bowel care; consider promotility/opioid antagonist in view of receiving [place] 5) Wt per rx Addendum: 09/17/19 at [address] Amended: Links added.
--- NOTE | 2019-09-17 18:00 | NUR ---
Patient in room MED 315. I have received report from Sabi RIOJAS and had the opportunity to ask questions and assume patient care.
[2019-09-17] MEDS: amitriptyline 10mg tablet PO SCH (22:15)
[2019-09-17] MEDS: atorvastatin 10mg tablet PO SCH (22:15)
[2019-09-18 02:00] VITALS: BP 112/49
[2019-09-18 04:47] LABS: BASOPHILS # (AUTO) 0.1 X10'3 (0-0.2); BASOPHILS % (AUTO) 1.3 % (0-1); EOSINOPHILS # (AUTO) 0.1 X10'3 (0-0.9); HEMATOCRIT 33.1 % (35.0-45.0); HEMOGLOBIN 11.4 g/dl (12.0-16.0); LYMPHOCYTES # (AUTO) 1.1 X10'3 (1.1-4.8); LYMPHOCYTES % (AUTO) 11.5 % (21-51); MEAN CORPUSCULAR HEMOGLOBIN 30.8 PG (27.0-31.0); MEAN CORPUSCULAR HGB CONC 34.4 g/dL (33.0-36.5); MEAN CORPUSCULAR VOLUME 89.6 FL (78-98); MEAN PLATELET VOLUME 7.9 FL (7.4-10.4); MONOCYTES # (AUTO) 0.7 X10'3 (0-0.9); NEUTROPHILS # (AUTO) 7.9 X10'3 (1.8-7.7); NEUTROPHILS % (AUTO) 79.2 % (42-75); PLATELET COUNT 256 X10'3 (140-440); RED BLOOD COUNT 3.69 X10'6 (4.20-5.60); RED CELL DISTRIBUTION WIDTH 14.5 % (11.5-14.5)
[2019-09-18 05:04] LABS: ALBUMIN 2.5 G/DL (3.4-5.0); ANION GAP 9 (8-16); BLOOD UREA NITROGEN 16 MG/DL (7-18); BUN/CREATININE RATIO 15.8 (6.6-38.0); CALCIUM 9.1 MG/DL (8.5-10.1); CHLORIDE 104 MMOL/L (99-107); CREATININE 1.01 MG/DL (0.40-0.90); GLUCOSE 109 MG/DL (70-104); MAGNESIUM 2.1 MG/DL (1.5-2.4); POTASSIUM 4.4 MMOL/L (3.5-5.1); SODIUM 137 MMOL/L (135-145); TOTAL CARBON DIOXIDE 24.1 MMOL/L (24-32); eGFR 53 ML/MIN
[2019-09-18 06:00] VITALS: BP 100/44
[2019-09-18] MEDS: budesonide 0.5mg/2ml UD nebule IH SCH (07:39)
[2019-09-18] MEDS: lactose-reduced food (Ensure High Protein) 237ml bottle PO SCH ×2 (08:00→13:41)
[2019-09-18] MEDS ORDERED: DOCU100C40 PO (08:06)
[2019-09-18] MEDS ORDERED: ATOR10TA PO (08:06)
[2019-09-18] MEDS ORDERED: AMIO200T61 PO (08:06)
[2019-09-18] MEDS ORDERED: METO25TA6 PO (08:06)
[2019-09-18] MEDS ORDERED: ASPI-1071 PO (08:06)
[2019-09-18] MEDS ORDERED: AMIT10TA6 PO (08:10)
[2019-09-18] MEDS: lactobacillus rhamnosus 10,000 MMU CELLS/CAPSULE PO SCH (09:18)
[2019-09-18] MEDS: docusate sod 100mg capsule PO SCH (09:18)
[2019-09-18] MEDS: amiodarone 200mg tablet PO SCH ×2 (09:18→13:44)
[2019-09-18] MEDS: magnesium Cl slow-release 64mg tablet PO SCH (09:19)
[2019-09-18] MEDS: aspirin 81mg tablet.DR PO SCH (09:19)
[2019-09-18] MEDS: potassium Cl 20 mEq SR tablet PO SCH (09:19)
[2019-09-18] MEDS: pantoprazole 40mg Tablet.DR PO SCH (09:19)
[2019-09-18] MEDS: metoprolol tartrate 12.5mg (1/2 tablet) PO SCH (09:20)
[2019-09-18 11:00] VITALS: BP 104/48
--- NOTE | 2019-09-18 12:38 | NUR ---
Prescriptions called in at this time to [facility] on [address] in [place].
--- NOTE | 2019-09-18 14:52 | NUR ---
Patient refused PT, ambulation with nursing, and use of incentive spirometer today. Education provided on benefits of compliance with MD orders.
--- NOTE | 2019-09-18 15:12 | NUR ---
Patient refused a final set of vital signs before discharge. Educated on importance of monitoring vital signs while still in the hospital.
--- NOTE | 2019-09-18 17:00 | NUR ---
I have reviewed and agree with all interventions, assessments performed and documented by Shanon RIOJAS .
--- NOTE | 2019-09-18 17:40 | NUR ---
Patient stable for discharge per MD orders.Transport O2 delivered and sent with patient. Prescriptions called in to [facility] on [address] [facility]. All discharge instructions and prescriptions reviewed with patient and daughter (primary caregiver). Patient verbalized understanding and intent to call for follow up appt with Dr. Boateng in 2 weeks, ballroom dancer in 4 weeks, and PCP in 6 weeks. Phone number given. Central line discontinued, cannula intact. Pressure held for 5 minutes. Clean dry dressing in place. electronic device monitor removed. Wound photos taken upon discharge. All personal belongings collected and sent with patient and family. PCT and RN wheeled patient, oxygen, and all belongings out of facility at 1740.
== END 2019-09-18 17:30 | disposition home or self-care (01) | DRG 233 ==
LOC: ER 23:52 → ED HOLD 08-31 04:19 → ICU 2S 08-31 07:18 → PCU 3S 09-01 17:16 → MED 3N 09-07 14:29 → CICU 2S 09-10 10:50 → MED 3N 09-13 14:51
PROVIDERS: ADMIT Internal Medicine Critical Care Medicine; ATTEND Thoracic Surgery (Cardiothoracic Vascular Surgery)
PROC: 4A023N7 Measurement of Cardiac Sampling and Pressure, Left Heart, Percutaneous Approach (ICD-10-PCS; principal; 2019-09-07)
PROC: B2151ZZ Fluoroscopy of Left Heart using Low Osmolar Contrast (ICD-10-PCS; 2019-09-07)
PROC: B2111ZZ Fluoroscopy of Multiple Coronary Arteries using Low Osmolar Contrast (ICD-10-PCS; 2019-09-07)
PROC: 02100Z9 Bypass Coronary Artery, One Artery from Left Internal Mammary, Open Approach (ICD-10-PCS; 2019-09-10)
PROC: 021109W Bypass Coronary Artery, Two Arteries from Aorta with Autologous Venous Tissue, Open Approach (ICD-10-PCS; 2019-09-10)
PROC: 06BQ4ZZ Excision of Left Saphenous Vein, Percutaneous Endoscopic Approach (ICD-10-PCS; 2019-09-10)
PROC: 06BP4ZZ Excision of Right Saphenous Vein, Percutaneous Endoscopic Approach (ICD-10-PCS; 2019-09-10)
PROC: 5A1221Z Performance of Cardiac Output, Continuous (ICD-10-PCS; 2019-09-10)
PROC: B24BZZ4 Ultrasonography of Heart with Aorta, Transesophageal (ICD-10-PCS; 2019-09-10)
PROC: 30233N1 Transfusion of Nonautologous Red Blood Cells into Peripheral Vein, Percutaneous Approach (ICD-10-PCS; 2019-09-10)
DX: I21.4 Non-ST elevation (NSTEMI) myocardial infarction (principal); J96.01 Acute respiratory failure with hypoxia; N17.0 Acute kidney failure with tubular necrosis; I50.31 Acute diastolic (congestive) heart failure; I13.0 Hypertensive heart and chronic kidney disease with heart failure and stage 1 through stage 4 chronic kidney disease, or unspecified chronic kidney disease; E87.2 Acidosis; I47.1 Supraventricular tachycardia; N18.9 Chronic kidney disease, unspecified; E78.5 Hyperlipidemia, unspecified; E86.0 Dehydration; F03.90 Unspecified dementia, unspecified severity, without behavioral disturbance, psychotic disturbance, mood disturbance, and anxiety; F17.210 Nicotine dependence, cigarettes, uncomplicated; G89.29 Other chronic pain; I25.10 Atherosclerotic heart disease of native coronary artery without angina pectoris; I27.20 Pulmonary hypertension, unspecified; I48.91 Unspecified atrial fibrillation; I50.9 Heart failure, unspecified; K59.00 Constipation, unspecified; Z96.641 Presence of right artificial hip joint; K21.9 Gastro-esophageal reflux disease without esophagitis; I95.9 Hypotension, unspecified; J02.9 Acute pharyngitis, unspecified; Z79.891 Long term (current) use of opiate analgesic
CPT/HCPCS: 0232T; 93306; 93312; 93325; 93458; 96365; 96375; 99291; 36415; 36600; 71045; 71046; 74018; 80048; 80053; 80202; 81001; 81003; 82330; 82435; 82803; 82947; 82948; 83036; 83605; 83735; 83880; 84100; 84132; 84145; 84295; 84484; 85018; 85025; 85347; 85384; 85610; 85730; 86885; 86900; 86901; 86920; 87040; 87070; 87077; 87081; 87186; 93005; 93880; 93970; 94002; 94060; 94640; 94668; 94760; 97110; 97112; 97116; 97161; 97530; 99152; 99153; A4618; A4620; A6258; A6402; A6446; A6449; A7000; A7048; C1713; C1751; C1760; C1769; C1894; C9113; G0378; GO378; J0171; J0282; J0690; J0696; J1100; J1265; J1644; J1815; J1940; J2001; J2060; J2150; J2250; J2260; J2270; J2310; J2370; J2405; J2440; J2704; J2720; J2795; J2930; J2997; J3010; J3246; J3370; J3475; J3480; J3490; J7030; J7040; J7050; J7120; J7626; P9016; P9045; Q0163; Q9967

== ENCOUNTER 2019-10-28 21:27 | Inpatient (IN) | payer MEDICARE, MEDICAID ==
[~2019-10-28] VITALS: Ht 160 cm; Wt 59.0 kg
[~2019-10-28 21:27] MED LIST: AMIO200T61 PO; AMIT10TA6 PO; ASPI-1071 PO; ATOR10TA PO; ATOR10TA70 PO; DOCU100C40 PO; FLUT1AER IH; GABA-530 PO; GABA-532 PO; METO25TA6 PO; NORepinephrine 1 mg/ml inj IV ONE; OMEP20CA15 PO; TIOT4MIS5 IH
--- NOTE | 2019-10-28 22:00 | NUR ---
levophed was started per hospital protocol, however it was DC'd by dr. Portillo due to normal BP.
--- NOTE | 2019-10-28 22:06 | NUR ---
Upon arrival the flight team had started levophed because the patient's blood pressure dropped below their protocol. Upon investigation of the patient's paperwork, there was not any recorded blood pressures that needed intervention at [facility]. After discussing this issue with the patient, she stated that her blood pressures normally run low. She specified that her systolic blood pressures run between 80s and low 100s. [facility] recorded vitals confirm this. At this point Dr. Portillo was informed of this issue and levophed and central line set up was temporarily discontinued to make sure the patient continued to perfuse at her baseline.
[2019-10-28] MEDS ORDERED: normal saline 1000ML IV soln IVB ONE (22:10)
[2019-10-28 22:13] LABS: BASOPHILS % (AUTO) 0.1 % (0-1); EOSINOPHILS % (AUTO) 0 % (0-6); HEMATOCRIT 37.3 % (35.0-45.0); LYMPHOCYTES # (AUTO) 0.4 X10'3 (1.1-4.8); LYMPHOCYTES % (AUTO) 1.9 % (21-51); MEAN CORPUSCULAR HEMOGLOBIN 28.4 PG (27.0-31.0); MEAN CORPUSCULAR HGB CONC 32.1 g/dL (33.0-36.5); MEAN CORPUSCULAR VOLUME 88.3 FL (78-98); MEAN PLATELET VOLUME 8.3 FL (7.4-10.4); MONOCYTES # (AUTO) 0.6 X10'3 (0-0.9); MONOCYTES % (AUTO) 2.9 % (2-12); NEUTROPHILS # (AUTO) 18.2 X10'3 (1.8-7.7); NEUTROPHILS % (AUTO) 95.1 % (42-75); PLATELET COUNT 189 X10'3 (140-440); RED BLOOD COUNT 4.22 X10'6 (4.20-5.60); RED CELL DISTRIBUTION WIDTH 14.5 % (11.5-14.5); WHITE BLOOD COUNT 19.1 X10'3 (4.5-11.0)
[2019-10-28 22:15] LABS: PARTIAL THROMBOPLASTIN TIME 30 SECONDS (22-32)
[2019-10-28 22:18] LABS: ALANINE AMINOTRANSFERASE 79 U/L (12-78); ALBUMIN 2.8 G/DL (3.4-5.0); ALBUMIN/GLOBULIN RATIO 0.8 (1.1-1.5); ALKALINE PHOSPHATASE 155 IU/L (46-116); ANION GAP 17 (8-16); ASPARTATE AMINO TRANSFERASE 76 U/L (10-37); BILIRUBIN,TOTAL 0.4 MG/DL (0.1-1.0); BLOOD UREA NITROGEN 25 MG/DL (7-18); BUN/CREATININE RATIO 14.4 (6.6-38.0); CALCIUM 8.4 MG/DL (8.5-10.1); CHLORIDE 101 MMOL/L (99-107); CREATININE 1.74 MG/DL (0.40-0.90); GLUCOSE 279 MG/DL (70-104); MAGNESIUM 1.8 MG/DL (1.5-2.4); POTASSIUM 4.1 MMOL/L (3.5-5.1); SODIUM 133 MMOL/L (135-145); TOTAL CARBON DIOXIDE 15.3 MMOL/L (24-32); TOTAL PROTEIN 6.4 G/DL (6.4-8.2); eGFR 29 ML/MIN
[2019-10-28] MEDS: normal saline 1000ml 1,000 ML IV SCH (23:01)
[2019-10-28] MEDS ORDERED: potassium Cl 20 mEq SR tablet PO PRN ×2 (23:05)
[2019-10-28] MEDS ORDERED: potassium CL 10mEq/100ml bag 100 ML IV PRN ×2 (23:05)
[2019-10-28] MEDS ORDERED: magnesium 4gm in 100ml NS 100 ML IV PRN (23:05)
[2019-10-28] MEDS ORDERED: ondansetron/PF 4mg/2ml inj IV PRN (23:05)
[2019-10-28] MEDS ORDERED: acetaminophen 325mg tablet PO PRN (23:05)
[2019-10-28] MEDS ORDERED: ipratropium/albuterol 3ml nebule NEB PRN (23:05)
[2019-10-28] MEDS ORDERED: magnesium hydroxide 30ml (MOM) UD suspension PO PRN (23:05)
[2019-10-28] MEDS ORDERED: magnesium Cl slow-release 64mg tablet PO PRN (23:05)
[2019-10-28] MEDS ORDERED: magnesium 2GM in 50ml NS 50 ML IV PRN (23:05)
[2019-10-28] MEDS ORDERED: mag hydrox/Alum hydrox/simeth 30ml oral suspension PO PRN (23:05)
[2019-10-29] VITALS (9 sets, daily range): BP systolic 87–125; BP diastolic 43–62
--- NOTE | 2019-10-29 00:15 | NUR ---
Patient in room ED 3. I have received report from SHINE Muniz and had the opportunity to ask questions and assume patient care.
--- NOTE | 2019-10-29 01:17 | NUR ---
Patient arrived on unit at approximately 0045 via [facility]. She is on 10 L oxygen mask, 2 RN skin check performed, MRSA swab collected, vital signs taken ( refer to vital signs intervention) and within normal limits. Patient is alert and oriented X4, was started on 100 mL/hr normal saline per MD order. Patient has an 18 G IV access to her right AC, she was placed on tele 38 and is in sinus rhythm. Patient is too short of breath to perform DART at this time. Will reassess her ability to answer DART questionnaire.
[2019-10-29] MEDS ORDERED: ipratropium/albuterol 3ml nebule NEB PRN (01:20)
--- NOTE | 2019-10-29 01:51 | NUR ---
Switched patient from 10 L oxygen mask to 5 L nasal cannula with continuous pulse ox monitoring. She is sustaining her O2 at 92% with this.
--- NOTE | 2019-10-29 03:15 | NUR ---
SENT TO [facility] MESSAGE: room 3021 Indra Sams: Patient daughter is requesting that her mother get ensure chocolate due to significant weight loss from pervious hospital visit, mechanical soft as well. Thank you, x [phone] halina
[2019-10-29 05:47] LABS: ALANINE AMINOTRANSFERASE 75 U/L (12-78); ALBUMIN 2.4 G/DL (3.4-5.0); ALBUMIN/GLOBULIN RATIO 0.7 (1.1-1.5); ALKALINE PHOSPHATASE 125 IU/L (46-116); ANION GAP 12 (8-16); ASPARTATE AMINO TRANSFERASE 48 U/L (10-37); BILIRUBIN,DIRECT 0.2 MG/DL (0-0.3); BILIRUBIN,TOTAL 0.3 MG/DL (0.1-1.0); BLOOD UREA NITROGEN 27 MG/DL (7-18); BUN/CREATININE RATIO 15.9 (6.6-38.0); CALCIUM 8.1 MG/DL (8.5-10.1); CHLORIDE 106 MMOL/L (99-107); GLUCOSE 247 MG/DL (70-104); MAGNESIUM 1.9 MG/DL (1.5-2.4); POTASSIUM 4.6 MMOL/L (3.5-5.1); SODIUM 136 MMOL/L (135-145); TOTAL CARBON DIOXIDE 17.7 MMOL/L (24-32); TOTAL PROTEIN 5.9 G/DL (6.4-8.2); eGFR 29 ML/MIN
[2019-10-29 06:00] LABS: BASOPHILS % (AUTO) 0.1 % (0-1); EOSINOPHILS % (AUTO) 0 % (0-6); HEMATOCRIT 32.8 % (35.0-45.0); HEMOGLOBIN 10.8 g/dl (12.0-16.0); LYMPHOCYTES # (AUTO) 0.7 X10'3 (1.1-4.8); LYMPHOCYTES % (AUTO) 5.1 % (21-51); MEAN CORPUSCULAR HEMOGLOBIN 29.2 PG (27.0-31.0); MEAN CORPUSCULAR HGB CONC 32.9 g/dL (33.0-36.5); MEAN CORPUSCULAR VOLUME 88.7 FL (78-98); MEAN PLATELET VOLUME 8.4 FL (7.4-10.4); MONOCYTES # (AUTO) 0.4 X10'3 (0-0.9); NEUTROPHILS # (AUTO) 13.1 X10'3 (1.8-7.7); NEUTROPHILS % (AUTO) 91.8 % (42-75); PLATELET COUNT 149 X10'3 (140-440); RED CELL DISTRIBUTION WIDTH 14.6 % (11.5-14.5); WHITE BLOOD COUNT 14.3 X10'3 (4.5-11.0)
--- NOTE | 2019-10-29 06:10 | NUR ---
Problems reprioritized. Patient report given, questions answered & plan of care reviewed with SHINE Epperson.
--- NOTE | 2019-10-29 06:33 | NUR ---
Patient in room PCU 3025. I have received report from SHINE Cohen and had the opportunity to ask questions and assume patient care.
[2019-10-29] MEDS ORDERED: ipratropium/albuterol 3ml nebule NEB SCH (07:00)
[2019-10-29] MEDS: K and/or MAG REPLACEMENT MC SCH ×2 (08:00→22:01)
[2019-10-29] MEDS ORDERED: CefTRIAXone 2gm/D5W 50ml 50 ML IV SCH (08:00)
[2019-10-29] MEDS: docusate sod 100mg capsule PO SCH ×2 (08:05→20:52)
[2019-10-29] MEDS: predniSONE 20 mg tablet PO SCH (08:05)
[2019-10-29] MEDS: atorvastatin 10mg tablet PO SCH (08:07)
[2019-10-29] MEDS: normal saline 1000ml 1,000 ML IV SCH ×2 (08:08→22:19)
[2019-10-29] MEDS: pantoprazole 40mg Tablet.DR PO SCH (08:08)
[2019-10-29] MEDS: amiodarone 200mg tablet PO SCH ×2 (08:08→20:52)
[2019-10-29] MEDS: aspirin 81mg tablet.DR PO SCH (08:08)
[2019-10-29] MEDS: lactobacillus rhamnosus 10,000 MMU CELLS/CAPSULE PO SCH ×2 (08:08→20:52)
[2019-10-29] MEDS: heparin, porcine 5000 units/ml vial SQ SCH ×2 (08:08→20:53)
[2019-10-29] MEDS: metoprolol tartrate 12.5mg (1/2 tablet) PO SCH ×2 (08:09→20:53)
[2019-10-29] MEDS: ipratropium/albuterol 3ml nebule NEB SCH ×4 (08:34→20:01)
[2019-10-29] MEDS: azithromycin/NS 500mg/250ml 250 ML IV SCH (09:35)
--- NOTE | 2019-10-29 10:37 | NUR ---
Sent to Dr Garza PAGER ID: [phone] MESSAGE: RE: Flaquita Mi [id number]. Pt desatting in low 70's. Unable to increase O2 sat. -Zeenat [id number]
--- NOTE | 2019-10-29 10:38 | NUR ---
pt O2 saturation in low 70's. Unable to increase with cough and deep breath, increased O2 from 4 to 5 L, sat pt up in bed, use of flutter valve. Pt had breathing Tx approximately 2 [address] ago[address] Respiratory and Dr have been paged.
--- NOTE | 2019-10-29 13:54 | NUR ---
pt O2 sat maintaining at 85%. deep breath and cough, flutter valve, and sitting upright not successful. RT paged.
[2019-10-29] MEDS: methylPREDNISolone sod succ 125mg/2ml vial IV SCH ×2 (16:24→23:32)
--- NOTE | 2019-10-29 18:36 | NUR ---
Problems reprioritized. Patient report given, questions answered & plan of care reviewed with SHINE Carter.
[2019-10-29] MEDS: amitriptyline 10mg tablet PO SCH (20:52)
[2019-10-29] MEDS ORDERED: atorvastatin 10mg tablet PO SCH (21:00)
[2019-10-29] MEDS: acetaminophen 325mg tablet PO PRN (22:15)
--- NOTE | 2019-10-29 23:12 | NUR ---
unable to dart patient due to SOB and low oxygenation
[2019-10-29] MEDS: cefepime 1GM in D5W 50mL 50 ML IV SCH (23:31)
[2019-10-30] MEDS: LORazepam 1 MG tablet PO PRN ×3 (00:21→17:24)
[2019-10-30 02:00] VITALS: BP 142/67
[2019-10-30 05:12] LABS: BASOPHILS % (AUTO) 0.2 % (0-1); EOSINOPHILS % (AUTO) 0 % (0-6); HEMATOCRIT 35.7 % (35.0-45.0); HEMOGLOBIN 11.7 g/dl (12.0-16.0); LYMPHOCYTES # (AUTO) 0.4 X10'3 (1.1-4.8); MEAN CORPUSCULAR HEMOGLOBIN 29.4 PG (27.0-31.0); MEAN CORPUSCULAR HGB CONC 32.8 g/dL (33.0-36.5); MEAN CORPUSCULAR VOLUME 89.6 FL (78-98); MEAN PLATELET VOLUME 8.4 FL (7.4-10.4); MONOCYTES # (AUTO) 0.4 X10'3 (0-0.9); MONOCYTES % (AUTO) 2.7 % (2-12); NEUTROPHILS # (AUTO) 13.1 X10'3 (1.8-7.7); NEUTROPHILS % (AUTO) 94.1 % (42-75); PLATELET COUNT 157 X10'3 (140-440); RED BLOOD COUNT 3.98 X10'6 (4.20-5.60); RED CELL DISTRIBUTION WIDTH 14.7 % (11.5-14.5); WHITE BLOOD COUNT 13.9 X10'3 (4.5-11.0)
[2019-10-30 05:14] LABS: ALBUMIN 2.5 G/DL (3.4-5.0); ANION GAP 12 (8-16); BLOOD UREA NITROGEN 26 MG/DL (7-18); CALCIUM 9.1 MG/DL (8.5-10.1); CHLORIDE 112 MMOL/L (99-107); CREATININE 1.24 MG/DL (0.40-0.90); GLUCOSE 149 MG/DL (70-104); MAGNESIUM 2.3 MG/DL (1.5-2.4); POTASSIUM 4.7 MMOL/L (3.5-5.1); SODIUM 141 MMOL/L (135-145); TOTAL CARBON DIOXIDE 17.1 MMOL/L (24-32); eGFR 42 ML/MIN
[2019-10-30 06:00] VITALS: BP 145/68
--- NOTE | 2019-10-30 06:00 | NUR ---
Problems reprioritized. Patient report given, questions answered & plan of care reviewed with Zeenat RN.
[2019-10-30] MEDS: normal saline 1000ml 1,000 ML IV SCH (06:27)
--- NOTE | 2019-10-30 06:35 | NUR ---
Patient in room PCU 3025. I have received report from SHINE Carter and had the opportunity to ask questions and assume patient care.
[2019-10-30] MEDS: K and/or MAG REPLACEMENT MC SCH ×2 (08:00→19:53)
[2019-10-30] MEDS: heparin, porcine 5000 units/ml vial SQ SCH ×2 (08:00→20:00)
[2019-10-30] MEDS: amiodarone 200mg tablet PO SCH ×2 (08:06→20:46)
[2019-10-30] MEDS: atorvastatin 10mg tablet PO SCH (08:06)
[2019-10-30] MEDS: predniSONE 20 mg tablet PO SCH (08:07)
[2019-10-30] MEDS: pantoprazole 40mg Tablet.DR PO SCH (08:07)
[2019-10-30] MEDS: lactobacillus rhamnosus 10,000 MMU CELLS/CAPSULE PO SCH ×2 (08:07→20:45)
[2019-10-30] MEDS: docusate sod 100mg capsule PO SCH ×2 (08:07→20:46)
[2019-10-30] MEDS: aspirin 81mg tablet.DR PO SCH (08:07)
[2019-10-30] MEDS: metoprolol tartrate 12.5mg (1/2 tablet) PO SCH ×2 (08:09→20:49)
[2019-10-30] MEDS: ipratropium/albuterol 3ml nebule NEB SCH ×4 (08:19→19:11)
[2019-10-30] MEDS: methylPREDNISolone sod succ 125mg/2ml vial IV SCH ×3 (08:20→23:55)
--- NOTE | 2019-10-30 08:50 | NUR ---
pt having difficulty breathing. RT called. Ativan given.
--- NOTE | 2019-10-30 08:50 | NUR ---
Sent to Dr Garza PAGER ID: [phone] MESSAGE: RE: Flaquita Mi [id number]. Need order for sputum culture. -Zeenat 1932
[2019-10-30] MEDS: cefepime 1GM in D5W 50mL 50 ML IV SCH ×3 (08:54→23:55)
[2019-10-30] MEDS: azithromycin/NS 500mg/250ml 250 ML IV SCH (08:54)
[2019-10-30 10:11] LABS: ABG BASE EXCESS -8.6 mmol/L (-2.0-3.0); ABG HCO3 15.2 mmol/L (22.0-26.0); ABG OXYGEN SATURATION 82.8 % (95-98); ABG PCO2 (T) 26.7 mmHg (35.0-45.0); ABG PH (T) 7.372 (7.350-7.450); ALLEN'S TEST Positive; FCOHb 0.8 % (0.5-1.5); FMetHb 0.3 % (0.3-1.12); FO2Hb 81.9 % (94-100); TOTAL HEMOGLOBIN 12.3 G/dl (12.0-16.0)
--- NOTE | 2019-10-30 10:16 | NUR ---
Sent to Dr Garza PAGER ID: [phone] MESSAGE: RE: Flaquita Mi [id number]. pO2 46.0. Please advise. -Zeenat [id number]
[2019-10-30 11:00] VITALS: BP 117/61
--- NOTE | 2019-10-30 11:07 | NUR ---
Dr Garza informed of ABG results. Still no new orders. Pt on high flow NC at 80/40, receiving breathing Tx from RT now.
--- NOTE | 2019-10-30 13:30 | NUR ---
Pt will receive her new Lasix order after V/Q scan so that urination does not hinder the procedure.
[2019-10-30] MEDS ORDERED: furosemide 10 MG/1 ML 10ml inj IV ONE (13:55)
--- NOTE | 2019-10-30 14:58 | NUR ---
Jadon from [facility] stated that the pt is on more O2 than the V/Q scan allows (up to 10L). He requested that RT or the RN join him since she is at the acuity level she is at. RT will join for the V/Q scan to help maintain her O2 levels, and the DART nurse will also go by to make sure they are good and get any help they may need. Jadon is on his way up to PCU now to take the pt to [facility].
[2019-10-30 18:30] VITALS: BP 131/55
--- NOTE | 2019-10-30 18:41 | NUR ---
Patient in room PCU 3025. I have received report from Zeenat RIOJAS and had the opportunity to ask questions and assume patient care.
--- NOTE | 2019-10-30 18:44 | NUR ---
Problems reprioritized. Patient report given, questions answered & plan of care reviewed with SHINE Carter.
[2019-10-30] MEDS: Melatonin 3mg tablet PO SCH (20:45)
[2019-10-30] MEDS: amitriptyline 10mg tablet PO SCH (20:46)
[2019-10-30] MEDS: furosemide 40mg/4ml inj IV SCH (20:46)
[2019-10-30 22:30] VITALS: BP 107/52
[2019-10-31 00:01] LABS: ABG HCO3 19.5 mmol/L (22.0-26.0); ABG OXYGEN SATURATION 93.3 % (95-98); ABG PH (T) 7.428 (7.350-7.450); ABG PO2 (T) 64.6 mmHg (83-108); ALLEN'S TEST Positive; FCOHb 0.7 % (0.5-1.5); FLOW 55 L/min; FMetHb 0.3 % (0.3-1.12); FO2Hb 92.4 % (94-100); PATIENT TEMPERATURE 36.4; RESPIRATORY RATE (OBSERVED) 20 b/min; TOTAL HEMOGLOBIN 12.6 G/dl (12.0-16.0)
[2019-10-31] MEDS ORDERED: OLANZapine **IM** 10 mg inj. IM PRN (00:05)
[2019-10-31] MEDS ORDERED: OLANZapine 2.5MG tablet PO PRN (00:05)
[2019-10-31 02:30] VITALS: BP 116/54
[2019-10-31] MEDS: LORazepam 1 MG tablet PO PRN ×2 (03:14→21:36)
[2019-10-31 05:50] LABS: BASOPHILS % (AUTO) 0.1 % (0-1); EOSINOPHILS % (AUTO) 0 % (0-6); HEMATOCRIT 35.1 % (35.0-45.0); HEMOGLOBIN 11.5 g/dl (12.0-16.0); LYMPHOCYTES # (AUTO) 0.5 X10'3 (1.1-4.8); LYMPHOCYTES % (AUTO) 3.2 % (21-51); MEAN CORPUSCULAR HGB CONC 32.7 g/dL (33.0-36.5); MEAN CORPUSCULAR VOLUME 88.5 FL (78-98); MEAN PLATELET VOLUME 8.3 FL (7.4-10.4); MONOCYTES # (AUTO) 0.5 X10'3 (0-0.9); MONOCYTES % (AUTO) 3.7 % (2-12); NEUTROPHILS # (AUTO) 13.1 X10'3 (1.8-7.7); PLATELET COUNT 180 X10'3 (140-440); RED BLOOD COUNT 3.96 X10'6 (4.20-5.60); RED CELL DISTRIBUTION WIDTH 14.8 % (11.5-14.5); WHITE BLOOD COUNT 14.1 X10'3 (4.5-11.0)
[2019-10-31 05:55] LABS: ALBUMIN 2.7 G/DL (3.4-5.0); ANION GAP 12 (8-16); BLOOD UREA NITROGEN 34 MG/DL (7-18); BUN/CREATININE RATIO 22.5 (6.6-38.0); CALCIUM 9.4 MG/DL (8.5-10.1); CHLORIDE 107 MMOL/L (99-107); CREATININE 1.51 MG/DL (0.40-0.90); GLUCOSE 189 MG/DL (70-104); MAGNESIUM 2.4 MG/DL (1.5-2.4); POTASSIUM 3.6 MMOL/L (3.5-5.1); SODIUM 142 MMOL/L (135-145); eGFR 34 ML/MIN
[2019-10-31 06:00] VITALS: BP 107/51
--- NOTE | 2019-10-31 06:06 | NUR ---
Problems reprioritized. Patient report given, questions answered & plan of care reviewed with Zeenat RN.
--- NOTE | 2019-10-31 06:09 | NUR ---
Patient in room PCU 3025. I have received report from SHINE Carter and had the opportunity to ask questions and assume patient care.
--- NOTE | 2019-10-31 07:30 | NUR ---
pt is slightly confused. she continues to pull off her high flow NC, resulting in decreased SpO2. she is now receiving lasix to clear off the fluid from her lungs. will continue to monitor.
[2019-10-31] MEDS: aspirin 81mg tablet.DR PO SCH (07:42)
[2019-10-31] MEDS: cefepime 1GM in D5W 50mL 50 ML IV SCH ×3 (07:42→23:23)
[2019-10-31] MEDS: heparin, porcine 5000 units/ml vial SQ SCH ×3 (07:43→21:20)
[2019-10-31] MEDS: predniSONE 20 mg tablet PO SCH (07:44)
[2019-10-31] MEDS: methylPREDNISolone sod succ 125mg/2ml vial IV SCH ×3 (07:44→23:23)
[2019-10-31] MEDS: furosemide 40mg/4ml inj IV SCH ×2 (07:44→21:24)
[2019-10-31] MEDS: lactobacillus rhamnosus 10,000 MMU CELLS/CAPSULE PO SCH ×2 (07:44→21:24)
[2019-10-31] MEDS: metoprolol tartrate 12.5mg (1/2 tablet) PO SCH ×2 (07:45→21:25)
[2019-10-31] MEDS: docusate sod 100mg capsule PO SCH ×2 (07:45→21:25)
[2019-10-31] MEDS: atorvastatin 10mg tablet PO SCH (07:46)
[2019-10-31] MEDS: amiodarone 200mg tablet PO SCH ×2 (07:46→21:23)
[2019-10-31] MEDS: azithromycin 250mg tablet PO SCH (07:46)
[2019-10-31] MEDS: pantoprazole 40mg Tablet.DR PO SCH (07:46)
[2019-10-31] MEDS: K and/or MAG REPLACEMENT MC SCH ×2 (08:00→21:20)
--- NOTE | 2019-10-31 08:00 | NUR ---
pt refused subcut heparin injection. she was educated about DVT prophylaxis, but stayed with her decision.
[2019-10-31] MEDS: ipratropium/albuterol 3ml nebule NEB SCH ×4 (08:53→19:58)
--- NOTE | 2019-10-31 08:55 | NUR ---
PT CONTINUES TO TAKE NC OFF SATS DIPPING IN MID 70'S Addendum: 10/31/19 at 0858 by Sherley Gómez RT Amended: Links added.
[2019-10-31 11:00] VITALS: BP 127/76
--- NOTE | 2019-10-31 12:09 | NUR ---
@ 0813 pt was off hhfnc satting 75% on room air sitting on edge of bed advised horacio johnson Addendum: 10/31/19 at 1210 by Sherley Gómez RT Amended: Links added.
--- NOTE | 2019-10-31 13:58 | NUR ---
Sent to Dr Garza PAGER ID: [phone] MESSAGE: RE: Flaquita Mi [id number]. Can we get ensure ordered for the pt? She is not eating properly. -Zeenat [id number]
--- NOTE | 2019-10-31 13:59 | NUR ---
Pt's daughter, Irene, called for update. Informed that there is no new development with her mother.
[2019-10-31 15:00] VITALS: BP 103/48
[2019-10-31] MEDS ORDERED: levoFLOXACIN 500mg tablet PO ONE (15:25)
--- NOTE | 2019-10-31 16:18 | NUR ---
pt with smaller hhfnc seems more comfortable O2 sat now 92% Addendum: 10/31/19 at 1618 by Sherley Gómez RT Amended: Links added.
[2019-10-31] MEDS: potassium Cl 20 mEq SR tablet PO SCH (17:35)
--- NOTE | 2019-10-31 18:20 | NUR ---
Problems reprioritized. Patient report given, questions answered & plan of care reviewed with SHINE Carter.
[2019-10-31 18:30] VITALS: BP 99/48
--- NOTE | 2019-10-31 18:40 | NUR ---
Patient in room PCU 3025. I have received report from Zeenat RIOJAS and had the opportunity to ask questions and assume patient care.
[2019-10-31] MEDS: amitriptyline 10mg tablet PO SCH (21:26)
[2019-10-31] MEDS: Melatonin 3mg tablet PO SCH (21:26)
[2019-10-31 22:30] VITALS: BP 101/43
[2019-11-01 02:30] VITALS: BP 97/36
[2019-11-01 05:38] LABS: BASOPHILS % (AUTO) 0.1 % (0-1); EOSINOPHILS % (AUTO) 0 % (0-6); HEMATOCRIT 33.4 % (35.0-45.0); HEMOGLOBIN 11.3 g/dl (12.0-16.0); LYMPHOCYTES # (AUTO) 0.4 X10'3 (1.1-4.8); LYMPHOCYTES % (AUTO) 4.5 % (21-51); MEAN CORPUSCULAR HEMOGLOBIN 29.3 PG (27.0-31.0); MEAN CORPUSCULAR HGB CONC 33.7 g/dL (33.0-36.5); MEAN PLATELET VOLUME 8.5 FL (7.4-10.4); MONOCYTES # (AUTO) 0.4 X10'3 (0-0.9); MONOCYTES % (AUTO) 3.7 % (2-12); NEUTROPHILS # (AUTO) 9.1 X10'3 (1.8-7.7); NEUTROPHILS % (AUTO) 91.7 % (42-75); PLATELET COUNT 154 X10'3 (140-440); RED BLOOD COUNT 3.85 X10'6 (4.20-5.60); RED CELL DISTRIBUTION WIDTH 14.7 % (11.5-14.5); WHITE BLOOD COUNT 9.9 X10'3 (4.5-11.0)
[2019-11-01 06:04] LABS: ALBUMIN 2.7 G/DL (3.4-5.0); ANION GAP 13 (8-16); BLOOD UREA NITROGEN 37 MG/DL (7-18); BUN/CREATININE RATIO 28.5 (6.6-38.0); CALCIUM 9.3 MG/DL (8.5-10.1); CHLORIDE 109 MMOL/L (99-107); GLUCOSE 154 MG/DL (70-104); MAGNESIUM 2.4 MG/DL (1.5-2.4); POTASSIUM 3.2 MMOL/L (3.5-5.1); SODIUM 146 MMOL/L (135-145); TOTAL CARBON DIOXIDE 24.4 MMOL/L (24-32); eGFR 40 ML/MIN
--- NOTE | 2019-11-01 06:17 | NUR ---
Problems reprioritized. Patient report given, questions answered & plan of care reviewed with Lakeshia RIOJAS.
--- NOTE | 2019-11-01 06:24 | NUR ---
Patient in room PCU 3025. I have received report from SHINE Carter and had the opportunity to ask questions and assume patient care.
[2019-11-01 07:00] VITALS: BP 145/50
[2019-11-01] MEDS ORDERED: potassium Cl 20 mEq SR tablet PO PRN (07:30)
[2019-11-01] MEDS ORDERED: potassium CL 10mEq/100ml bag 100 ML IV PRN (07:30)
[2019-11-01] MEDS: atorvastatin 10mg tablet PO SCH (07:43)
[2019-11-01] MEDS: pantoprazole 40mg Tablet.DR PO SCH (07:43)
[2019-11-01] MEDS: cefepime 1GM in D5W 50mL 50 ML IV SCH ×2 (07:43→16:13)
[2019-11-01] MEDS: potassium Cl 20 mEq SR tablet PO SCH ×2 (07:44→18:02)
[2019-11-01] MEDS: metoprolol tartrate 12.5mg (1/2 tablet) PO SCH ×2 (07:44→19:52)
[2019-11-01] MEDS: docusate sod 100mg capsule PO SCH ×2 (07:45→19:50)
[2019-11-01] MEDS: amiodarone 200mg tablet PO SCH ×2 (07:45→19:51)
[2019-11-01] MEDS: lactobacillus rhamnosus 10,000 MMU CELLS/CAPSULE PO SCH ×2 (07:45→19:50)
[2019-11-01] MEDS: aspirin 81mg tablet.DR PO SCH (07:45)
[2019-11-01] MEDS: azithromycin 250mg tablet PO SCH (07:45)
[2019-11-01] MEDS: heparin, porcine 5000 units/ml vial SQ SCH ×2 (07:46→19:47)
[2019-11-01] MEDS: furosemide 40mg/4ml inj IV SCH ×2 (07:46→19:50)
[2019-11-01] MEDS: methylPREDNISolone sod succ 125mg/2ml vial IV SCH ×2 (07:46→16:14)
[2019-11-01] MEDS: K and/or MAG REPLACEMENT MC SCH ×3 (07:47→20:00)
[2019-11-01] MEDS: ipratropium/albuterol 3ml nebule NEB SCH ×4 (08:03→20:15)
[2019-11-01] MEDS: acetaminophen 325mg tablet PO PRN (08:14)
[2019-11-01] MEDS: potassium Cl 20 mEq SR tablet PO PRN ×3 (08:15→18:03)
--- NOTE | 2019-11-01 09:30 | NUR ---
New orders given from Dr. Garza to place [place] 5 q. 6 PRN order in
[2019-11-01] MEDS ORDERED: HYDROcodone/acetaminophen 10/325mg tab PO PRN (09:40)
[2019-11-01 11:00] VITALS: BP 112/52
[2019-11-01] MEDS ORDERED: levoFLOXACIN 500mg tablet PO SCH (11:00)
[2019-11-01] MEDS: HYDROcodone/acetaminophen 5mg/325mg tablet PO PRN ×2 (12:07→19:47)
[2019-11-01 15:00] VITALS: BP 104/49
[2019-11-01] MEDS ORDERED: levoFLOXACIN 250mg tablet PO SCH (16:28)
[2019-11-01 18:00] VITALS: BP 96/45
--- NOTE | 2019-11-01 18:20 | NUR ---
Patient in room PCU 3025. I have received report from Lakeshia RIOJAS and had the opportunity to ask questions and assume patient care.
--- NOTE | 2019-11-01 18:33 | NUR ---
Problems reprioritized. Patient report given, questions answered & plan of care reviewed with SHINE Ramirez.
[2019-11-01] MEDS: LORazepam 1 MG tablet PO PRN (19:51)
[2019-11-01] MEDS: Melatonin 3mg tablet PO SCH (21:33)
[2019-11-01] MEDS: amitriptyline 10mg tablet PO SCH (21:33)
[2019-11-01 22:00] VITALS: BP 108/58
[2019-11-02] MEDS: cefepime 1GM in D5W 50mL 50 ML IV SCH ×3 (00:15→17:09)
[2019-11-02] MEDS: methylPREDNISolone sod succ 125mg/2ml vial IV SCH ×3 (00:16→17:09)
[2019-11-02] MEDS: HYDROcodone/acetaminophen 5mg/325mg tablet PO PRN ×2 (04:11→12:05)
[2019-11-02 06:00] VITALS: BP 116/60
[2019-11-02 06:07] LABS: BASOPHILS % (AUTO) 0.1 % (0-1); EOSINOPHILS % (AUTO) 0 % (0-6); HEMATOCRIT 33.4 % (35.0-45.0); HEMOGLOBIN 11.3 g/dl (12.0-16.0); LYMPHOCYTES # (AUTO) 0.3 X10'3 (1.1-4.8); LYMPHOCYTES % (AUTO) 3.6 % (21-51); MEAN CORPUSCULAR HEMOGLOBIN 29.4 PG (27.0-31.0); MEAN CORPUSCULAR HGB CONC 33.8 g/dL (33.0-36.5); MEAN PLATELET VOLUME 8.7 FL (7.4-10.4); MONOCYTES # (AUTO) 0.2 X10'3 (0-0.9); MONOCYTES % (AUTO) 2.3 % (2-12); NEUTROPHILS # (AUTO) 8.5 X10'3 (1.8-7.7); PLATELET COUNT 127 X10'3 (140-440); RED BLOOD COUNT 3.83 X10'6 (4.20-5.60); RED CELL DISTRIBUTION WIDTH 14.9 % (11.5-14.5); WHITE BLOOD COUNT 9.1 X10'3 (4.5-11.0)
--- NOTE | 2019-11-02 06:17 | NUR ---
Problems reprioritized. Patient report given, questions answered & plan of care reviewed with Lakeshia RIOJAS.
[2019-11-02 06:38] LABS: ALBUMIN 2.7 G/DL (3.4-5.0); ANION GAP 9 (8-16); BLOOD UREA NITROGEN 38 MG/DL (7-18); BUN/CREATININE RATIO 27.5 (6.6-38.0); CALCIUM 8.9 MG/DL (8.5-10.1); CHLORIDE 108 MMOL/L (99-107); CREATININE 1.38 MG/DL (0.40-0.90); GLUCOSE 166 MG/DL (70-104); MAGNESIUM 2.3 MG/DL (1.5-2.4); POTASSIUM 4.8 MMOL/L (3.5-5.1); SODIUM 142 MMOL/L (135-145); TOTAL CARBON DIOXIDE 24.6 MMOL/L (24-32); eGFR 37 ML/MIN
[2019-11-02] MEDS: pantoprazole 40mg Tablet.DR PO SCH (07:05)
[2019-11-02] MEDS: docusate sod 100mg capsule PO SCH (07:05)
[2019-11-02] MEDS: azithromycin 250mg tablet PO SCH (07:06)
[2019-11-02] MEDS: atorvastatin 10mg tablet PO SCH (07:06)
[2019-11-02] MEDS: amiodarone 200mg tablet PO SCH (07:06)
[2019-11-02] MEDS: lactobacillus rhamnosus 10,000 MMU CELLS/CAPSULE PO SCH (07:06)
[2019-11-02] MEDS: aspirin 81mg tablet.DR PO SCH (07:06)
[2019-11-02] MEDS: ipratropium/albuterol 3ml nebule NEB SCH ×3 (07:07→14:16)
[2019-11-02] MEDS: furosemide 40mg/4ml inj IV SCH (07:09)
[2019-11-02] MEDS: metoprolol tartrate 12.5mg (1/2 tablet) PO SCH (07:09)
[2019-11-02] MEDS: heparin, porcine 5000 units/ml vial SQ SCH (07:10)
[2019-11-02] MEDS: K and/or MAG REPLACEMENT MC SCH (07:15)
[2019-11-02] MEDS: potassium Cl 20 mEq SR tablet PO SCH ×2 (07:33→17:09)
[2019-11-02 11:00] VITALS: BP 104/97
[2019-11-02 15:00] VITALS: BP 99/40
--- NOTE | 2019-11-02 18:13 | NUR ---
Pt stable for discharge per MD orders. All belongings send with patient. Provided education regarding high flow usage. Tele monitor removed. PIV remained in place for IV abx to [facility]. Pt sent via [employer] by two [facility] paramedics.
== END 2019-11-02 17:00 | DRG 871 ==
LOC: ER 21:28 → ED HOLD 23:12 → PCU 3S 10-29 00:30
PROVIDERS: ADMIT Hospitalist; ATTEND Internal Medicine
PROC: CB121ZZ Planar Nuclear Medicine Imaging of Lungs and Bronchi using Technetium 99m (Tc-99m) (ICD-10-PCS; principal; 2019-10-30)
DX: A41.9 Sepsis, unspecified organism (principal); J18.9 Pneumonia, unspecified organism; J96.01 Acute respiratory failure with hypoxia; N17.9 Acute kidney failure, unspecified; J84.10 Pulmonary fibrosis, unspecified; E87.6 Hypokalemia; I27.20 Pulmonary hypertension, unspecified; E87.70 Fluid overload, unspecified; J43.9 Emphysema, unspecified; I12.9 Hypertensive chronic kidney disease with stage 1 through stage 4 chronic kidney disease, or unspecified chronic kidney disease; N18.9 Chronic kidney disease, unspecified; I25.10 Atherosclerotic heart disease of native coronary artery without angina pectoris; Z95.1 Presence of aortocoronary bypass graft; Z88.8 Allergy status to other drugs, medicaments and biological substances; Z79.899 Other long term (current) drug therapy; Z79.82 Long term (current) use of aspirin
CPT/HCPCS: 36415; 36600; 71045; 76937; 78582; 80048; 80053; 80076; 82803; 83605; 83735; 84145; 84439; 84443; 85018; 85025; 85610; 85730; 87040; 87070; 87081; 87186; 93005; 94640; 94760; 99285; A9539; A9540; G0378; J0456; J0692; J0696; J1644; J1940; J2930; J3490; J7030; J7512